=== PATIENT | male | born 1970 | race Caucasian/White ===

== ENCOUNTER 2017-03-15 18:19 | Emergency (ER) | payer OTHER ==
[~2017-03-15] VITALS: Ht 182.9 cm; Wt 83.5 kg
[2017-03-15 18:21] VITALS: BP 167/87; PULSE 92; RESP 18; TEMP 98.5; O2SAT 98
--- NOTE | 2017-03-15 18:56 | PD ---
Physical Exam Date Seen by Provider: Mar 15, 2017 Time Seen by Provider: 18:53 Narrative 47 y/o male here with 5 weeks of generalized weakness and 25 pound weight loss. Has palpitations and Nausea. No Vomitting or Diarrhea. Was prescibed Abx 2 weeks ago by PCP but did not take it as it interferred with his Antabuse. States No ETOH. was prescibed ABX for report of Increased WBC. Protocols ordered. Vital signs reviewed. Patient stable. Awaiting Bed placement. Data Data Last Documented VS Vital Signs Date Time Temp Pulse Resp B/P Pulse Ox O2 Delivery O2 Flow Rate FiO2 03/15/17 18:21 98.5 92 18 167/87 98 MDM Medical Record Reviewed: Yes Supervised Visit with ANGELA: Yes Condition: Stable Patricio Melendez Mar 15, 2017 18:56
[2017-03-15 19:41] LABS: BLOOD, URINE NEG (NEG); COMMENT (UR) CULT NOT INDICATED; CULTURE IF INDICATED CULT NOT INDICATED; GLUCOSE,URINE NEG (NEG); KETONE, URINE NEG (NEG); MUCUS URINE FEW /lpf (OCC); NITRITE,URINE NEG (NEG); SQUAMOUS EPITHELIAL CELL URINE <1 /hpf (0-5); URINE COLOR YELLOW (YELLW/STRAW)
[2017-03-15 19:43] LABS: AUTOMATED NEUTROPHIL # 7.5 TH/MM3 (1.8-7.7); BASOPHIL % 0.5 % (0.0-2.0); EOSINOPHIL # 0.1 TH/MM3 (0-0.4); HEMATOCRIT 41.5 % (39.0-51.0); HEMO FLAGS DIFF FINAL; LYMPH % 21.3 % (9.0-44.0); LYMPHOCYTE # 2.2 TH/MM3 (1.0-4.8); MEAN CELL VOLUME 81.7 FL (80.0-100.0); MEAN CORPUSCULAR HEMOGLOBIN 27.9 PG (27.0-34.0); MEAN CORPUSCULAR HGB CONC 34.1 % (32.0-36.0); NEUT % 71.2 % (16.0-70.0); PLATELET COUNT 218 TH/MM3 (150-450); RED BLOOD COUNT 5.08 MIL/MM3 (4.50-5.90); RED CELL DISTRIBUTION WIDTH 14.4 % (11.6-17.2); WHITE BLOOD COUNT 10.5 TH/MM3 (4.0-11.0)
[2017-03-15 19:55] LABS: ANION GAP 8 MEQ/L (5-15); AST (GOT) 11 U/L (15-37); BICARBONATE 26.3 MEQ/L (21.0-32.0); BLOOD UREA NITROGEN 17 MG/DL (7-18); CHLORIDE 103 MEQ/L (98-107); GLOMERULAR FILTRATION RATE 82 ML/MIN (>89); POTASSIUM 4.2 MEQ/L (3.5-5.1); SODIUM (NA) 137 MEQ/L (136-145)
[2017-03-15 19:58] LABS: ALKALINE PHOSPHATASE 67 U/L (45-117); ALT (GPT) 20 U/L (12-78); TOTAL BILIRUBIN ADULT 0.4 MG/DL (0.2-1.0)
[2017-03-15 21:51] VITALS: BP 142/88; PULSE 68; RESP 16; O2SAT 96
[2017-03-15] MEDS ORDERED: IOHEXOL 350 MG/ML 10 ML VIAL (for RAD DIAG) IV ONE (22:01)
--- NOTE | 2017-03-15 22:20 | RADRPT ---
EXAM DATE/TIME: 03/15/2017 21:57 [place] COMPARISON: No previous studies available for comparison. INDICATIONS : Patient complains of abdominal pain with fatigue and weight loss. IV CONTRAST: 100 cc Omnipaque 350 (iohexol) IV ORAL CONTRAST: No oral contrast ingested. RADIATION DOSE: 7.80 CTDIvol (mGy) MEDICAL HISTORY : None SURGICAL HISTORY : None. ENCOUNTER: Initial ACUITY: 1 month PAIN SCALE: 5/10 LOCATION: abdomen TECHNIQUE: Volumetric scanning of the abdomen and pelvis was performed. Using automated exposure control and ad justment of the mA and/or kV according to patient size, radiation dose was kept as low as reasonably achievable to obtain optimal diagnostic quality images. DICOM format image data is available electro nically for review and comparison. FINDINGS: LOWER LUNGS: The visualized lower lungs are clear. LIVER: 3.7 cm presumed hemangioma right lobe liver SPLEEN: Normal size without lesion. PANCREAS: Within normal limits. KIDNEYS: Normal in size and shape. There is no mass, stone or hydronephrosis. ADRENAL GLANDS: Within normal limits. VASCULAR: There is no aortic aneurysm. BOWEL/MESENTERY: The stomach, small bowel, and colon demonstrate no acute abnormality. There is no free intraperitone al air or fluid. ABDOMINAL WALL: Within normal limits. RETROPERITONEUM: There is no lymphadenopathy. BLADDER: No wall thickening or mass. REPRODUCTIVE: Within normal limits. INGUINAL: There is no lymphadenopathy or hernia. MUSCULOSKELETAL: Within normal limits for patient age. CONCLUSION: 1. No acute findings. 3.7 cm lesion with peripheral right lobe liver most characteristic of a liver h emangioma. Daryl Toro MD on March 15, 2017 at 22:15 Board Certified Radiologist. This report was verified electronically.
--- NOTE | 2017-03-15 22:21 | PD ---
HPI Chief Complaint: Abdominal Pain Time Seen by Provider: 21:30 Travel History International Travel<30 days: No Contact w/Intl Traveler<30days: No Traveled to known affect area: No History of Present Illness HPI The patient is a 47 year old male who presents to the [facility] emergency department with a history of 5 weeks of reportedly experiencing generalized weakness, decreased appetite, and weight loss of approximately 20 pounds. The patient reports that he's been doing his primary care physician on 3 occasions regarding this. He reports that he underwent laboratory studies with . He reports that he was told that his white count was elevated, therefore he was given a prescription for an antibiotic. He did not take the prescription for antibiotic as of interactive with his Antabuse that he been on for the last couple of years. He reports that he has not drank any alcohol for the last 3 years. He reports that 2 weeks ago when the symptoms continued to progress he did stop the Antabuse as well. He reports that he has intermittent abdominal pains that come and go and move throughout the abdomen in various locations. He reports having nausea without any vomiting or diarrhea. He reports that his last bowel movement was today. He denies ever undergoing endoscopy or colonoscopy in the past. He reports that 3 years ago he did have an episode of jaundice that went away when he stopped drinking alcohol. He denies being evaluated for this in the past. On review of systems, the patient denies any recent fevers, cough, congestion, neck pain, chest pain, shortness of breath, urinary symptoms, or neurologic symptoms. The patient intermittently reports having palpitations associated with this. [facility] Past Medical History Narrative Medical The patient's past medical history is significant for anxiety disorder, hypertension, diabetes mellitus, insomnia, prior history of alcohol abuse Diabetes: Yes Patient Takes Glucophage: Yes Hypertension: Yes Tetanus Vaccination: Unknown Influenza Vaccination: No Past Surgical History Narrative Surgical The patient's past surgical history is significant for brain surgery as a child related to a traumatic brain injury. Surgical History: No Previous Surgery Social History Alcohol Use: No Tobacco Use: Yes (CHEWS) Substance Use: No Allergies-Medications (Allergen,Severity, Reaction): Coded Allergies: No Known Allergies (Unverified , 03/15/17) Reported Meds & Prescriptions Reported Meds & Active Scripts Active Famotidine 40 Mg Tab 40 Mg PO BID Review of Systems Except as stated in HPI: all other systems reviewed are Neg General / Constitutional: No: Fever Eyes: No: Visual changes HENT: No: Headaches Cardiovascular: No: Chest Pain or Discomfort Respiratory: No: Shortness of Breath Gastrointestinal: Positive: Nausea, Abdominal Pain, No: Vomiting, Diarrhea, Hematemesis, Hematochezia, Changes in Bowel Habits, Indigestion, Loss of Appetite Genitourinary: No: Dysuria Musculoskeletal: No: Pain Skin: No Rash Neurologic: No: Weakness Psychiatric: No: Depression Endocrine: No: Polydipsia Hematologic/Lymphatic: No: Easy Bruising Physical Exam Narrative General: The patient is a well-developed well-nourished male in no acute distress. Head and Neck exam: Head is normocephalic atraumatic. Eyes: EOMI, pupils are equal round and reactive to light. Nose: Midline septum with pink mucous membranes Mouth: Dentition unremarkable. Moist mucus membranes. Posterior oropharynx is not erythematous. No tonsillar hypertrophy. Uvula midline. Airway patent. Neck: No palpable lymphadenopathy. No nuchal rigidity. No thyromegaly. Cardiovascular: Regular rate and rhythm without murmurs, gallops, or rubs. No pulse deficit to the extremities and some obtain his auscultation and palpation of his radial artery. Lungs: Clear to auscultation bilaterally. No wheezes, rhonchi, or rales. Abdomen: Soft, without tenderness to palpation in all 4 quadrants of the abdomen. No guarding, rebound, or rigidity. Normal bowel sounds are audible. No tenderness on palpation of McBurney's point. Negative [place] sign. Extremities: No clubbing, cyanosis, or edema. 2+ pulses in all 4 extremities. No calf tenderness on palpation. Back: No costovertebral angle tenderness to palpation. Neurologic Exam: Grossly nonfocal. Skin Exam: No rash noted. Intact skin that is warm and dry. Data Data Last Documented VS Vital Signs Date Time Temp Pulse Resp B/P Pulse Ox O2 Delivery O2 Flow Rate FiO2 03/15/17 21:51 68 16 142/88 96 Room Air 03/15/17 18:21 98.5 Orders Complete Blood Count With Diff (03/15/17 18:52) Comprehensive Metabolic Panel (03/15/17 18:52) Urinalysis - C+S If Indicated (03/15/17 18:52) Iv Access Insert/Monitor (03/15/17 18:52) Oxygen Administration (03/15/17 18:52) Oximetry (03/15/17 18:52) Lipase (03/15/17 18:52) Ct Abd/Pel W Iv Contrast(Rout) (03/15/17 21:32) Iohexol 350 Inj (Omnipaque 350 Inj) (03/15/17 22:01) Electrocardiogram (03/15/17 22:47) Sodium Chlor 0.9% 1000 Ml Inj (Ns 1000 M (03/15/17 23:00) Ondansetron Inj (Zofran Inj) (03/15/17 23:00) Thyroid Stimulating Hormone (03/15/17 19:10) Famotidine Inj (Pepcid Inj) (03/15/17 23:30) Labs Laboratory Tests Test 03/15/17 19:10 White Blood Count 10.5 TH/MM3 Red Blood Count 5.08 MIL/MM3 Hemoglobin 14.2 GM/DL Hematocrit 41.5 % Mean Corpuscular Volume 81.7 FL Mean Corpuscular Hemoglobin 27.9 PG Mean Corpuscular Hemoglobin 34.1 % Concent Red Cell Distribution Width 14.4 % Platelet Count 218 TH/MM3 Mean Platelet Volume 8.5 FL Neutrophils (%) (Auto) 71.2 % Lymphocytes (%) (Auto) 21.3 % Monocytes (%) (Auto) 6.0 % Eosinophils (%) (Auto) 1.0 % Basophils (%) (Auto) 0.5 % Neutrophils # (Auto) 7.5 TH/MM3 Lymphocytes # (Auto) 2.2 TH/MM3 Monocytes # (Auto) 0.6 TH/MM3 Eosinophils # (Auto) 0.1 TH/MM3 Basophils # (Auto) 0.0 TH/MM3 CBC Comment DIFF FINAL Differential Comment Urine Color YELLOW Urine Turbidity CLEAR Urine pH 6.0 Urine Specific Z[place]ma 1.021 Urine Protein NEG mg/dL Urine Glucose (UA) NEG mg/dL Urine Ketones NEG mg/dL Urine Occult Blood NEG Urine Nitrite NEG Urine Bilirubin NEG Urine Urobilinogen LESS THAN 2.0 MG/DL Urine Leukocyte Esterase NEG Urine RBC LESS THAN 1 /hpf Urine WBC LESS THAN 1 /hpf Urine Squamous Epithelial <1 /hpf Cells Urine Mucus FEW /lpf Microscopic Urinalysis Comment CULT NOT INDICATED Sodium Level 137 MEQ/L Potassium Level 4.2 MEQ/L Chloride Level 103 MEQ/L Carbon Dioxide Level 26.3 MEQ/L Anion Gap 8 MEQ/L Blood Urea Nitrogen 17 MG/DL Creatinine 0.98 MG/DL Estimat Glomerular Filtration 82 ML/MIN Rate Random Glucose 169 MG/DL Calcium Level 9.3 MG/DL Total Bilirubin 0.4 MG/DL Aspartate Amino Transf 11 U/L (AST/SGOT) Alanine Aminotransferase 20 U/L (ALT/SGPT) Alkaline Phosphatase 67 U/L Total Protein 7.3 GM/DL Albumin 3.8 GM/DL Lipase 515 U/L Thyroid Stimulating Hormone 0.823 uIU/ML 3rd Gen [facility] Medical Decision Making Medical Screen Exam Complete: Yes Emergency Medical Condition: Yes Medical Record Reviewed: Yes Interpretation(s) Last Impressions Abdomen/Pelvis CT 03/15/172131 Signed Impressions: Service Date/Time: Wednesday, March 15, 2017 21:57 - CONCLUSION: 1. No acute findings. 3.7 cm lesion with peripheral right lobe liver most characteristic of a liver hemangioma. Daryl Toro MD Differential Diagnosis Hyperthyroid disorder, versus electrolyte derangements, versus dehydration, versus pancreatitis, versus occult cancer, versus depression, versus anxiety Narrative Course During the course of the patients emergency department visit, the patients history, examination, and differential diagnosis were reviewed with the patient. The patient had IV access obtained and blood work sent for analysis. The patient was placed on a bus driver/monitor with oximetry and blood pressure monitoring. An ECG was ordered. The patient was initially provided normal saline a 1 L IV fluid bolus, Zofran 4 mg IV. The patient was given famotidine 20 mg IV. The patients laboratory studies were reviewed and remarkable for a white count of 10.5, hemoglobin 14.2, platelets 218 with neutrophils 71.2. CMP is remarkable for glucose of 169, AST 11, lipase 515, urinalysis is unremarkable. Radiology studies were reviewed and remarkable for a CT scan of the abdomen and pelvis shows no acute findings. 3.7 cm lesion within the peripheral right lower lobe of the liver most characteristic of the liver hemangioma. The patient was instructed regarding the importance of close follow-up with a ski patrol officer and his primary care physician. The patient was given a prescription for famotidine. The patient is resting comfortably and feels better, is alert and in no distress. The patients results and examination findings were discussed with the patient. The repeat examination is unremarkable and benign. The history, exam, diagnostic testing, and current condition do not suggest any significant pathology to warrant further testing, continued ED treatment, admission, or surgical evaluation at this point. The vital signs have been stable. The patient does not have uncontrollable pain, intractable vomiting, or other significant symptoms. The patient's condition is stable and appropriate for discharge. The patient will pursue further outpatient evaluation with a primary care physician or other designated or consulting physician as indicated in the discharge instructions. The patient expressed understanding and was agreeable with this plan. Physician Communication Physician Communication The patient's case was discussed with Dr. Maldonado who will see the patient in close follow-up in the next 1-2 days in his office in the [facility]. He was agreeable with the plan for the patient to follow-up with the GI doctor. He agreed with the plan for the patient to be sent home with a prescription for famotidine. Diagnosis Primary Impression: Generalized weakness Additional Impression: Weight loss Referrals: Eduardo Machado MD call for appointment Patel Maldonado DO 2 days Patient Instructions: General Instructions, Weakness (ED) Med/Other Pt SpecificInfo: Prescription(s) given Scripts Famotidine 40 Mg Tab40 Mg PO BID #14 TAB Ref 0 Prov:Tomasa Dai MD 03/15/17 Disposition: 01 DISCHARGE HOME Condition: Stable Tomasa Dai MD Mar 15, 2017 22:21
[2017-03-15] MEDS ORDERED: SODIUM CHLOR 0.9% 1000 ML INJ 1,000 ML IV ONE (23:00)
[2017-03-15] MEDS ORDERED: ONDANSETRON HCL 4 MG/2 ML VIAL IV ONE (23:00)
[2017-03-15] MEDS ORDERED: FAMO40TA PO (23:24)
[2017-03-15] MEDS ORDERED: FAMOTIDINE INJ 20 MG in SODIUM CHLORIDE 0.9% INJ 98 ML IV SCH (23:30)
== END 2017-03-16 00:36 | disposition home or self-care (01) ==
LOC: NEPE 18:19
DX: R53.1 Weakness (principal); R63.4 Abnormal weight loss; E11.9 Type 2 diabetes mellitus without complications; Z79.84 Long term (current) use of oral hypoglycemic drugs; F17.220 Nicotine dependence, chewing tobacco, uncomplicated
CPT/HCPCS: 74177; 80053; 81001; 83690; 84443; 85025; 96374; 96375; 99285; J2405; J7030; Q9967

== ENCOUNTER 2018-05-22 17:49 | Inpatient (IN) ==
[2018-05-22] MEDS ORDERED: Tetanus/Diphtheria Toxoid Adult Vaccine Inj 0.5 ML Vial IM ONE (19:07)
[2018-05-22] MEDS ORDERED: Ketorolac Inj 30 MG/ML (IVP) Vial IV.PUSH ONE (19:07)
[2018-05-22] MEDS ORDERED: Acetaminophen 325 MG Tablet PO ONE (19:07)
--- NOTE | 2018-05-22 19:07 | ED ---
HPI General Chief complaint: Skin/Abscess/Foreign Body Stated complaint: left hand swelling cut on atiya sink Time Seen by Provider: 05/22/18 18:49 Source: patient Mode of arrival: ambulatory Limitations: no limitations History of Present Illness HPI narrative: Patient is a 48-year-old male who presents to the emergency room with complaints of infection to his left hand. Patient reports that at baseline , he is right-hand dominant. Patient reports that on or Wednesday of last week, he was fixing a sink at work. Patient reports that piece of the metal part of the sink broke off and cut his left hand. Patient reports that since then, he has had increased swelling and redness to his left hand which is radiating up his arm. Patient is unsure if he had any fevers, reports that he is unsure if his tetanus is up-to-date. Patient also endorses that he has been experimenting with IV drugs. Reports that he keeps missing his veins in his arms and that he noticed red spots where he attempted to shoot up in both upper extremities. Related Data Home Medications Medication Instructions Recorded Confirmed Lipitor 05/22/18 metformin 500 mg PO BID 05/22/18 05/22/18 Allergies Allergy/AdvReac Type Severity Reaction Status Date / Time No Known Allergies Allergy Verified 05/22/18 18:02 Review of Systems ROS: all other systems reviewed are negative [facility] Medical History Medical History Diabetes mellitus (Acute) High cholesterol (Acute) Hypertension (Acute) Surgical History Surgical History History of surgery of head (Acute) Social History Social History Substance History: Active Abuse Second Hand Smoke Exposure: No Smoking Status: Never smoker How Often Do You Have a Drink Containing Alcohol: Never Recent Travel in [facility] within the Last 8 Weeks: No Recent Out of Country Travel within the Last 8 Weeks: No Substance Abuse Detail Crack/Cocaine: Route Used Substance Abuse: Intravenously Other: Substance Use Type Other:: Dilaudid Route Used Substance Abuse: Intravenously Immunization History Tetanus Immunization: Unsure Exam Narrative Exam Narrative: GENERAL: Moderate distress SKIN: Focused skin assessment warm/dry. HEAD: Atraumatic. Normocephalic. EYES: Pupils equal and round. No scleral icterus. No injection or drainage. ENT: No nasal bleeding or discharge. Mucous membranes pink and moist. NECK: Trachea midline. No JVD. CARDIOVASCULAR: Regular rate and rhythm. No murmur appreciated. RESPIRATORY: No accessory muscle use. Clear to auscultation. Breath sounds equal bilaterally. GASTROINTESTINAL: Abdomen soft, non-tender, nondistended. Hepatic and splenic margins not palpable. MUSCULOSKELETAL: No obvious deformities. No clubbing. No cyanosis. RUE: patient with track case to his RUE LUE: patient with track case to his LUE, he has swelling to the thenar aspect of his right hand, he does have stranding from the thenar aspect of his hands up to his forearm along with track case, patient with good range of motion to all digits of fingers, no evidence of flexor tenosynovitis, there is no evidence of compartment syndrome to his left hand. Patient has good pulses with no neurovascular compromise. NEUROLOGICAL: Awake and alert. No obvious cranial nerve deficits. Motor grossly within normal limits. Normal speech. PSYCHIATRIC: Appropriate mood and affect; insight and judgment normal. Course Initial Documented Vital Signs Temperature 100.5 F H 05/22/18 17:59 Pulse Rate 92 H 05/22/18 17:59 Respiratory Rate 16 05/22/18 17:59 Blood Pressure 159/69 H 05/22/18 17:59 Pulse Oximetry 98 05/22/18 17:59 Last Documented Vital Signs Temperature 100.5 F H 05/22/18 17:59 Pulse Rate 90 05/22/18 20:07 Respiratory Rate 20 05/22/18 20:07 Blood Pressure 135/65 05/22/18 20:07 Pulse Oximetry 100 05/22/18 20:07 Medical Decision Making MDM Narrative Medical decision making narrative: During the course of the patients emergency department visit, the patients history, examination, and differential diagnosis were reviewed with the patient. The patient was placed on a systems librarian with oximetry and frequent blood pressure monitoring. The patient had an IV access obtained and blood work sent for analysis. The patient was initially provided IVF, IV vanco and tetanus was updated Patient has likely an infection vs abscess to the thenar aspect of his left hand - call made to hand surgery to review case as he may need a washout in the OR Case reviewed with Dr. Lyon - will bring the patient tonight for washout. Patient has been NPO for the past [address] Maldonado - will admit to his service Dr. Maldonado is on vacation - request admissions to [facility] case reviewed with Dr. Shukla who accepts pt to service Medical Screen Exam Complete: Yes Emergency Medical Condition: Yes Differential Diagnosis Differential Diagnosis: Hand abscess versus cellulitis, IVDA Lab Data Result diagrams: 05/22/18 19:15 05/22/18 19:15 Lab Results 05/22/18 05/22/18 05/22/18 Range/Units 19:15 19:15 19:15 CBC w Diff Auto diff final WBC 10.7 (4.0-11.0) th/mm3 RBC 4.19 L (4.50-5.90) mil/mm3 Hgb 11.1 L (13.0-17.0) gm/dL Hct 32.6 L (39.0-51.0) % MCV 77.8 L (80.0-100.0) fL MCH 26.4 L (27.0-34.0) pg MCHC 33.9 (32.0-36.0) % RDW 14.0 (11.6-17.2) % Plt Count 239 (150-450) th/mm3 MPV 9.4 (7.0-11.0) fL Neut % (Auto) 78.2 H (16.0-70.0) % Lymph % (Auto) 11.7 (9.0-44.0) % [place] % (Auto) 8.9 H (0.0-8.0) % Eos % (Auto) 1.0 (0.0-4.0) % Baso % (Auto) 0.2 (0.0-2.0) % Neut # (Auto) 8.3 H (1.8-7.7) th/mm3 Lymph # (Auto) 1.3 (1.0-4.8) th/mm3 [place] # (Auto) 1.0 H (0.0-0.9) th/mm3 Eos # (Auto) 0.1 (0.0-0.4) th/mm3 Baso # (Auto) 0.0 (0.0-0.2) th/mm3 WBC Differential . Differential Comment . PT 11.1 (9.8-11.6) sec INR 1.1 Ratio APTT 27.0 (24.3-30.1) sec Sodium 133 L (136-145) meq/L Potassium 3.6 (3.5-5.1) meq/L Chloride 103 (98-107) meq/L Carbon Dioxide 18.5 L (21.0-32.0) meq/L Anion Gap 12 (5-15) meq/L BUN 55 H (7-18) mg/dL Creatinine 2.20 H (0.60-1.30) mg/dL Estimated GFR 32 L (>89) mL/min Random Glucose 225 H (74-106) mg/dL Lactic Acid (0.4-2.0) mmol/L Calcium 8.2 L (8.5-10.1) mg/dL Total Bilirubin 0.8 (0.2-1.0) mg/dL AST 232 H (15-37) U/L ALT 219 H (12-78) U/L Alkaline Phosphatase 97 (45-117) U/L Total Protein 7.0 (6.4-8.2) g/dL Albumin 3.2 L (3.4-5.0) g/dL 05/22/18 Range/Units 19:15 CBC w Diff WBC (4.0-11.0) th/mm3 RBC (4.50-5.90) mil/mm3 Hgb (13.0-17.0) gm/dL Hct (39.0-51.0) % MCV (80.0-100.0) fL MCH (27.0-34.0) pg MCHC (32.0-36.0) % RDW (11.6-17.2) % Plt Count (150-450) th/mm3 MPV (7.0-11.0) fL Neut % (Auto) (16.0-70.0) % Lymph % (Auto) (9.0-44.0) % [place] % (Auto) (0.0-8.0) % Eos % (Auto) (0.0-4.0) % Baso % (Auto) (0.0-2.0) % Neut # (Auto) (1.8-7.7) th/mm3 Lymph # (Auto) (1.0-4.8) th/mm3 [place] # (Auto) (0.0-0.9) th/mm3 Eos # (Auto) (0.0-0.4) th/mm3 Baso # (Auto) (0.0-0.2) th/mm3 WBC Differential Differential Comment PT (9.8-11.6) sec INR Ratio APTT (24.3-30.1) sec Sodium (136-145) meq/L Potassium (3.5-5.1) meq/L Chloride (98-107) meq/L Carbon Dioxide (21.0-32.0) meq/L Anion Gap (5-15) meq/L BUN (7-18) mg/dL Creatinine (0.60-1.30) mg/dL Estimated GFR (>89) mL/min Random Glucose (74-106) mg/dL Lactic Acid 0.9 (0.4-2.0) mmol/L Calcium (8.5-10.1) mg/dL Total Bilirubin (0.2-1.0) mg/dL AST (15-37) U/L ALT (12-78) U/L Alkaline Phosphatase (45-117) U/L Total Protein (6.4-8.2) g/dL Albumin (3.4-5.0) g/dL Imaging Data Radiologist's impression: Hand X-Ray 05/22/18 19:07 CONCLUSION: Generalized soft tissue swelling of the thenar eminence without radiopaque foreign body. Discharge Plan Discharge Disposition Patient Disposition: 30 Still Patient Discharge Condition Condition: Fair Discharge Details Diagnosis: Abscess of hand, left, Acute renal insufficiency Physicians Team ED Provider: Leni Lewis Primary Care Provider: Patel Maldonado Other Providers: Donald Lyon Rxs /Orders / Referrals /Forms Prescriptions: No Action metformin 500 mg Tablet 500 mg PO BID RF: 0 Lipitor RF: 0 Status ED Status: Admitted Patient
[2018-05-22] MEDS ORDERED: Sod Chloride 0.9% Inj 1,000 ML IV.SIG SCH (19:15)
[2018-05-22 19:34] LABS: Baso % (Auto) 0.2 % (0.0-2.0); Eos # (Auto) 0.1 th/mm3 (0.0-0.4); Hematocrit 32.6 % (39.0-51.0); Hemoglobin 11.1 gm/dL (13.0-17.0); Lymph # (Auto) 1.3 th/mm3 (1.0-4.8); Lymph % (Auto) 11.7 % (9.0-44.0); Mean Corpuscular HGB Conc 33.9 % (32.0-36.0); Mean Corpuscular Hemoglobin 26.4 pg (27.0-34.0); Mean Corpuscular Volume 77.8 fL (80.0-100.0); Mean Platelet Volume 9.4 fL (7.0-11.0); Mono % (Auto) 8.9 % (0.0-8.0); Neut # (Auto) 8.3 th/mm3 (1.8-7.7); Neut % (Auto) 78.2 % (16.0-70.0); Platelet Count 239 th/mm3 (150-450); Red Blood Count 4.19 mil/mm3 (4.50-5.90); White Blood Count 10.7 th/mm3 (4.0-11.0)
[2018-05-22 19:41] LABS: Chloride 103 meq/L (98-107); Potassium 3.6 meq/L (3.5-5.1); Sodium 133 meq/L (136-145)
[2018-05-22 19:45] LABS: Albumin 3.2 g/dL (3.4-5.0); Anion Gap 12 meq/L (5-15); Blood Urea Nitrogen 55 mg/dL (7-18); Calcium 8.2 mg/dL (8.5-10.1); Carbon Dioxide 18.5 meq/L (21.0-32.0); Glucose,Random 225 mg/dL (74-106)
[2018-05-22] MEDS ORDERED: Morphine Inj 4 MG/ML Vial IV.PUSH ONE ×3 (19:45→23:07)
[2018-05-22 19:47] LABS: INR 1.1 Ratio; Prothrombin Time 11.1 sec (9.8-11.6)
[2018-05-22 19:48] LABS: Alanine Aminotransferase 219 U/L (12-78); Aspartate Aminotransferase 232 U/L (15-37); Glomerular Filtration Rate 32 mL/min (>89)
[2018-05-22 19:51] LABS: Alkaline Phosphatase 97 U/L (45-117)
[2018-05-22] MEDS ORDERED: Piperacil/Tazo 3.375 GM Premix 50 ML IV.SIG ONE (19:51)
--- NOTE | 2018-05-22 19:51 | XR ---
EXAM DATE: 05/22/2018 7:07 PM EDT AGE/SEX: 48 years / Male INDICATIONS: Laceration to palmar aspect of 1st metacarpal of left hand by atiya metal. CLINICAL DATA: This is the patient's initial encounter. Patient reports that signs and symptoms have been present for 4 - 6 days and indicates a pain score of 10/10. MEDICAL/SURGICAL HISTORY: None. None. COMPARISON: No prior exams available for comparison. FINDINGS: Bony structures are intact and in normal alignment. Osseous density is normal. Soft tissue swelling t henar eminence. No radiopaque foreign bodies seen. CONCLUSION: Generalized soft tissue swelling of the thenar eminence without radiopaque foreign body. Electronically signed by: Jarod Hillman MD 05/22/2018 7:49 PM EDT
[2018-05-22] MEDS ORDERED: Vancomycin Inj 1,000 MG in Sodium Chlor 0.9% Inj 250 ML IV.SIG SCH (20:00)
[2018-05-22] MEDS ORDERED: Vancomycin Inj 1,000 MG in Sodium Chlor 0.9% Inj 250 ML IV.SIG ONE (20:00)
[2018-05-22] MEDS ORDERED: Vancomycin Inj 1 GM/200 ML PIGGYBACK IV.SIG SCH (20:00)
[2018-05-22] MEDS ORDERED: Vancomycin Consult Pharmacy OTHER PRN (20:11)
[2018-05-22] MEDS ORDERED: Bisacodyl 10 MG Supp RECTAL PRN (20:13)
[2018-05-22] MEDS ORDERED: Acetaminophen 325 MG Tablet PO PRN (20:13)
[2018-05-22] MEDS ORDERED: Lidocaine 2% Inj 50 ML Vial ONE (20:35)
[2018-05-22] MEDS ORDERED: Bupivacaine PF 0.5% Inj 30 ML Vial ONE (20:35)
[2018-05-22] MEDS ORDERED: Neomycin/Polymyxin G.U. Irrigant 1 ML Ampul ONE (20:35)
[2018-05-22] MEDS ORDERED: fentaNYL Citrate Inj 100 MCG/2 ML Ampul ONE (21:29)
--- NOTE | 2018-05-22 21:38 | MB ---
cc: Donald Lyon MD DATE: 05/22/2018 REASON FOR CONSULTATION: Left hand infection. HISTORY OF PRESENT ILLNESS: The patient is a 48-year-old right-hand dominant male with history of diabetes, presented to the ED with complaints of pain, swelling and redness involving the left hand/thumb for the past 2-3 days. The patient states he was working on a sink which broke off and cut his left hand. The patient also states he has been trying with IV drugs and has been unsuccessful, and he has been injecting all over both upper extremities. He has noticed worsening symptoms over the past 12 hours. He also complains of painful range of motion of the thumb. Denies any numbness. Denies any history of MRSA in the past. Denies any chills or rigors. PAST MEDICAL HISTORY: Significant for diabetes, hypertension, and high cholesterol. PHYSICAL EXAMINATION: The patient is alert and oriented x 3. Examination of his left hand reveals diffuse swelling over the thenar eminence and over the first webspace. There is also evidence of erythema over the thenar region. There is also evidence of wound along the lateral aspect of the MP joint region of the thumb. Clear serous discharge noted from the region. Questionable fluctuance noted over the lateral aspect of the MP joint of the thumb. He has diffuse tenderness over the thenar eminence. No obvious fluctuation of the thenar eminence noted. He has intact capillary refill. He has intact flexion and extension of the thumb IP joint. Mild tenderness noted along the flexor tendon sheath of the thumb. He has intact sensation distally. He has intact distal capillary refill. The patient also has streaking erythema which extends along the dorsal aspect of the forearm. The patient also has multiple needlestick case over the forearm. He also has a few spots on the right forearm and hand, which appear to be swollen with no evidence of fluctuation of drainage. Vital signs are significant for a temperature of 100.5. LABORATORY DATA: White count of 10.7 with neutrophil shift of 78%. X-rays of the left hand shows evidence of soft tissue swelling around the thenar eminence with no evidence of foreign body. ASSESSMENT: A 48-year-old male with abscess infection/infection right thumb thenar eminence. PLAN: Plan will be to take the patient emergently for incision and drainage of right thumb/hand abscess. Continue with IV antibiotics and keep the patient n.p.o. Donald Loyn MD SE/molina , 09:08 PM , 09:14 PM
[2018-05-22] MEDS ORDERED: Lidocaine PF 1% Inj 5 ML Syringe INFILTRATN ONE (21:54)
[2018-05-22] MEDS ORDERED: Succinylcholine Inj 100 MG/5 ML Syringe IV.PUSH ONE (21:54)
[2018-05-22] MEDS ORDERED: Sodium Chlor 0.9% Inj 500 ML IV.SIG SCH (22:00)
[2018-05-22] MEDS ORDERED: Chlorhexidine Gluconate 2% 1 Pack (2 Cloths) TOPICAL ONE (22:00)
[2018-05-22] MEDS ORDERED: Metoprolol Tartrate 25 MG Tablet PO ONE (22:00)
--- NOTE | 2018-05-22 22:41 | P.OP ---
- Preoperative Diagnosis (1) Abscess of hand, left - Postoperative Diagnosis (1) Abscess of hand, left Comment: abscess including thenar space left hand Date of procedure: 05/22/18 Procedure: incision and drainage left hand/thenar abscess thenar compartment release left hand Surgeon: Donald Lyon MD Estimated blood loss (mL): 5 Tourniquet time (min): 35 Pathology: other (swab for c/s) Operation and Findings: abscess subcutaneous location MP joint region, thenar region and extensor region of the thumb thenar space abscess left hand
[2018-05-22] MEDS ORDERED: HYDROmorphone PF Inj 2 MG/ML Vial ONE (23:15)
--- NOTE | 2018-05-22 23:29 | MP ---
cc: Donald Lyon MD DATE OF OPERATION: 05/22/2018 PREOPERATIVE DIAGNOSIS: Left hand abscess. POSTOPERATIVE DIAGNOSES: Left hand abscess and thenar abscess, left side. PROCEDURE PERFORMED: Incision and drainage of left hand abscess and thenar compartment release, left hand. SURGEON: Donald Lyon MD ANESTHESIA: General. ESTIMATED BLOOD LOSS: 5 mL. TOURNIQUET TIME: 35 minutes at 250 mmHg. SPECIMENS: Specimen was sent for culture and sensitivity. DISPOSITION: To the PACU, stable. INDICATIONS: The patient is a 48-year-old right-hand dominant male with a history of diabetes, who presented with complaints of pain and swelling involving the left hand for the past 2 days, worse for the past 12 hours. He was working on a atiya sink and apparently, he injured the left hand. The patient also gives history of attempted drainage of the infection by himself, which was unsuccessful. He also admits to injecting drugs into both upper extremities recently. On examination, he had swelling over the thenar eminence with open wounds along the radial aspect of the MP joint region of the thumb. There was also evidence of surrounding swelling and erythema around the thenar aspect along with the first dorsal webspace. Range of motion of the thumb was limited and painful. X-ray showed soft tissue swelling. He had a neutrophil shift of 78%. The patient was consented for incision and drainage, left hand abscess. The patient was explained the risks and benefits of the procedure. PROCEDURE IN DETAIL: The patient was brought to the operating room under general anesthesia. The left upper extremity was sterilely prepped and draped. Incision site was marked in a zigzag fashion over the radial aspect of the MP joint region of the thumb. Incision was then made over the proposed incision site. Soft tissue dissection was carried out. Extensive inflammatory tissue was noted in the subcutaneous location. On further dissection, there was evidence for involvement of the thenar muscle and so the decision was made to extend the incision proximally and open up the thenar space. The thenar space was opened and there was evidence of purulent material within the thenar muscle region. Another incision was then made distal to the thenar crease of the thenar space along the ulnar aspect and this was connected to the incision on the radial aspect. Pockets of pus were noted. Pockets of pus were broken by blunt dissection. An incision was made over the dorsal aspect of the thumb. This was connected to the radial aspect of the MP joint of the thumb. There was evidence of purulence in the region. Thorough wash was given. Excisional debridement of necrotic tissue, which was found along the radial aspect of the thumb, which included the aponeurosis of the thenar muscles, this was debrided. Initially, wound wash was carried out with normal saline mixed with hydrogen peroxide. This was then followed by normal saline mixed with irrigant. About a liter of solution was used. Specimen was obtained for culture and sensitivity prior to wash. Packing of the wounds was carried out. Tourniquet was deflated at 35 minutes. He had good distal circulation after release of tourniquet. The skin over the thenar eminence and along the radial aspect of the MP joint of the thumb appeared to be mottled. The skin was then loosely approximated over the radial aspect of the MP joint using multiple 5-0 nylon interrupted stitches. Bulky dressing was applied, which was held in place by Sof-Rol and bias hand wrap. The patient was then recovered and sent to the recovery room in stable condition. PLAN: The plan will be to followup cultures, continue with IV antibiotics, and keep the limb elevated. Donald Lyon MD SE/neisha , 10:45 PM , 10:54 PM
[2018-05-23] MEDS ORDERED: Morphine Inj 4 MG/ML Vial IV.PUSH ONE ×2 (00:30→18:30)
[2018-05-23] MEDS: Piperacil/Tazo 4.5 GM Premix 4.5 GM/100 ML BAG IV.SIG SCH ×4 (01:02→18:26)
[2018-05-23] MEDS: Senna/Docusate Sodium 8.6/50 MG Tablet PO SCH ×3 (01:02→21:38)
[2018-05-23] MEDS: Morphine Sulfate Inj 2 MG/ML Vial IV.PUSH PRN ×5 (02:45→21:37)
[2018-05-23 05:29] LABS: Baso % (Auto) 0.3 % (0.0-2.0); Eos # (Auto) 0.1 th/mm3 (0.0-0.4); Eos % (Auto) 1.8 % (0.0-4.0); Hematocrit 31.4 % (39.0-51.0); Hemoglobin 10.3 gm/dL (13.0-17.0); Lymph # (Auto) 1.6 th/mm3 (1.0-4.8); Lymph % (Auto) 19.6 % (9.0-44.0); Mean Corpuscular HGB Conc 32.7 % (32.0-36.0); Mean Corpuscular Hemoglobin 25.9 pg (27.0-34.0); Mean Corpuscular Volume 79.1 fL (80.0-100.0); Mean Platelet Volume 8.5 fL (7.0-11.0); Mono # (Auto) 0.8 th/mm3 (0.0-0.9); Mono % (Auto) 9.9 % (0.0-8.0); Neut # (Auto) 5.6 th/mm3 (1.8-7.7); Neut % (Auto) 68.4 % (16.0-70.0); Platelet Count 220 th/mm3 (150-450); Red Blood Count 3.97 mil/mm3 (4.50-5.90); Red Cell Distribution Width 13.6 % (11.6-17.2); White Blood Count 8.1 th/mm3 (4.0-11.0)
[2018-05-23 05:41] LABS: Chloride 109 meq/L (98-107); Potassium 3.6 meq/L (3.5-5.1); Sodium 140 meq/L (136-145)
[2018-05-23 05:45] LABS: Calcium 7.7 mg/dL (8.5-10.1)
[2018-05-23 06:19] LABS: Alanine Aminotransferase 177 U/L (12-78); Albumin 2.6 g/dL (3.4-5.0); Alkaline Phosphatase 79 U/L (45-117); Anion Gap 9 meq/L (5-15); Aspartate Aminotransferase 162 U/L (15-37); Blood Urea Nitrogen 38 mg/dL (7-18); Glomerular Filtration Rate 46 mL/min (>89); Glucose,Random 205 mg/dL (74-106)
[2018-05-23] MEDS: Sod Chloride 0.9% Inj 1,000 ML IV.CONT SCH ×2 (08:14)
[2018-05-23] MEDS ORDERED: Dextrose 50% in Water 50 ML Vial IV.PUSH PRN (09:09)
--- NOTE | 2018-05-23 11:40 | P.HP ---
History of Present Illness Primary Care Physician: Patel Malodnado DO Chief Complaint: Painful and swollen left thumb History of Present Illness: 48-year-old man with a past medical history of diabetes type 2, hypertension presented yesterday to the ED for evaluation of left painful thumb and swelling since Wednesday, May 21, 2018. Apparently, on on May 19, 2018, patient was fixing a sink at work when he reported that a broken metal part cut his left thumb. On Wednesday morning, patient noted increasing swelling and redness, and using a needle puncture his skin of his thumb try to release the pressure as well as the pus which has accumulated underneath the skin. Patient also reported experimented with IV Dilaudid at home. When he presented to the ED, he denied at the time of any febrile episode. He has no chest pain or shortness of breath. Hand surgery was consulted and patient underwent incision and drainage which along with release Thenar compartment - Diagnosis (1) Abscess of hand, left (2) Transaminitis (3) IVDU (intravenous drug user) (4) Diabetes mellitus, type 2 Inpatient Certification: I certify that the inpatient services were ordered in accordance with Medicare regulations governing the order. This includes certification that hospital inpatient services are reasonable and necessary and in the case of services not specified as inpatient-only under 42 CFR 419.22(n), that they are appropriately provided as inpatient services in accordance to with the 2-midnight benchmark under 43 CFR 412.3(e) Estimated Total Length of Stay (Days): 2 Plans for Post Hospital Care: Not yet determined Review of Systems All other systems reviewed negative except as stated in HPI [facility] - History History Provided By: Patient - Medical History Medical History: Medical History (Last Reviewed 05/22/18 @ 19:19 by Leni Lewis) Diabetes mellitus High cholesterol Hypertension - Surgical History Surgical History: Surgical History (Last Reviewed 05/22/18 @ 19:19 by Leni Lewis) History of surgery of head - Family History Family History: Family History (Last Updated 05/23/18 @ 11:43 by Kashmir Le MD) Other Adopted - Tobacco History Second Hand Smoke Exposure: No Tobacco Use In Past 30 Days: No Smoking Status: Never smoker - Alcohol History How Often Do You Have a Drink Containing Alcohol: Never - Substance Use History Substance History: Active Abuse - Substance Use Type Crack/Cocaine Status: Active Route Used: Intravenously Reason for Use: Feels Good Comment: unable to obtain details Other Type: Dilaudid Status: Active Route Used: Intravenously Reason for Use: Feels Good Comment: unable to obtain details - Travel History Recent Travel in the [place] Within the Last 8 Weeks: No Recent Travel Out of the Country Within the Last 8 Weeks: No - Immunization History Tetanus Immunization: <5 Years Tetanus Immunization Year if Known: 2017 Hx Influenza Vaccine This Season: No Medications and Allergies Active Medications: Active Medications Acetaminophen (Tylenol) 650 mg PO Q4H PRN PRN Reason: Temp > 100.4 Al Hydroxide/Mg Hydroxide (Milk Of Magnesia Liq) 30 ml PO Q12H PRN PRN Reason: Mild Constipation Aripiprazole (Abilify) 5 mg PO DAILY ANGELO Bisacodyl (Dulcolax Supp) 10 mg RECTAL DAILY PRN PRN Reason: SEVERE CONSITIPATION Dextrose (D50w Vial) 50 ml IV.PUSH UNSCH PRN PRN Reason: PER HYPOGLYCEMIA PROTOCOL Glucagon (Glucagon Inj) 1 mg OTHER PRN PRN PRN Reason: for Hypoglycemia Protocol Sodium Chloride (Ns Inj) 1,000 mls @ 0 mls/hr IV.SIG BOLUS ANGELO Last Infusion: 05/22/18 20:59 Dose: 0 mls/hr Piperacillin/Tazobactam/Dextrose (Zosyn 4.5 Gm Premix) 4.5 gm in 100 mls @ 200 mls/hr IV.SIG Q6H ANGELO Last Infusion: 05/23/18 10:46 Dose: Infused Vancomycin HCl 1,250 mg/ (Sodium Chloride) 262.5 mls @ 262.5 mls/hr IV.SIG Q24H ANGELO Lactated Ringer's (Lr 1000 Ml Inj) 1,000 mls @ 30 mls/hr IV.SIG .Q24H ANGELO Stop: 05/23/18 21:59 Last Admin: 05/22/18 21:30 Dose: 30 mls/hr Insulin Aspart (Novolog Insulin Correctional Sugar Inj) 0 unit SQ ACHS ANGELO; Protocol Lactulose (Lactulose Liq) 30 ml PO DAILY PRN PRN Reason: SEVERE CONSITIPATION Lisinopril (Prinivil) 10 mg PO DAILY ANGELO Miscellaneous Information ([facility] Ordered Lab Info) 0 each OTHER ONCE ONE Stop: 05/25/18 15:46 Miscellaneous Information ([facility] Nursing Information) 1 each OTHER UNSCH PRN PRN Reason: SEE LABEL COMMENTS Stop: 05/23/18 23:00 Morphine Sulfate (Morphine Inj) 2 mg IV.PUSH Q4H PRN PRN Reason: PAIN 6-10 Last Admin: 05/23/18 10:50 Dose: 2 mg Ondansetron HCl (Zofran Inj) 4 mg IV.PUSH Q6H PRN PRN Reason: NAUSEA OR VOMITING Pharmacy Profile Note (Vancomycin Consult Pharmacy) 1 each OTHER UNSCH PRN PRN Reason: Pharmacy to dose Senna/Docusate Sodium (Nicky-Colace) 1 tab PO BID ANGELO Last Admin: 05/23/18 10:51 Dose: 1 tab Sennosides (Senokot) 17.2 mg PO Q12H PRN PRN Reason: Moderate Constipation Allergies Allergy/AdvReac Type Severity Reaction Status Date / Time No Known Allergies Allergy Verified 05/22/18 18:02 Home Medications Medication Instructions Recorded Confirmed Type atorvastatin [Lipitor] 20 mg PO DAILY 05/22/18 05/22/18 History metformin 500 mg PO BID 05/22/18 05/22/18 History aripiprazole 5 mg PO DAILY 05/23/18 05/23/18 History escitalopram oxalate [Lexapro] 10 mg PO DAILY 05/23/18 05/23/18 History zolpidem [Ambien] 10 mg HS PRN 05/23/18 05/23/18 History Exam Vital signs: Vital Signs 05/22/18 17:59 05/22/18 20:03 05/22/18 20:07 Temperature 100.5 F H Pulse Rate 92 H 90 Respiratory Rate 16 20 Blood Pressure 159/69 H 135/65 Pulse Oximetry 98 98 100 05/22/18 21:14 05/22/18 22:53 05/22/18 23:12 Temperature 99.1 F 98.3 F Pulse Rate 77 85 80 Respiratory Rate 19 16 16 Blood Pressure 126/61 161/55 H 140/81 Pulse Oximetry 96 100 100 05/22/18 23:27 05/22/18 23:42 05/23/18 00:00 Temperature 98.6 F Pulse Rate 74 75 68 Respiratory Rate 16 16 16 Blood Pressure 141/68 H 136/60 116/82 Pulse Oximetry 97 93 L 97 05/23/18 00:28 05/23/18 04:00 05/23/18 08:00 Temperature 97.8 F 97.7 F Pulse Rate 75 61 62 Respiratory Rate 16 20 Blood Pressure 108/62 108/63 Pulse Oximetry 95 96 05/23/18 08:14 Temperature Pulse Rate Respiratory Rate 20 Blood Pressure Pulse Oximetry Intake & Output 05/22/18 05/23/18 05/23/18 18:59 06:59 18:59 Intake Total 2592 / 2592 578 / 578 Output Total 1800 / 1800 Balance 792 / 792 578 / 578 Weight 93.2 kg 73.4 kg Intake: IV 1372 / 1372 578 / 578 NS Inj 1,000 ML @ 100 mls/hr IV 522 / 522 478 / 478 .CONT .Q10H [facility] Rx#:[id number] Ofirmev Inj 1,000 mg In 100 ml 100 / 100 @ 0 mls/hr IV.SIG .STK-MED ONE Rx#:[id number] Zosyn 4.5 GM Premix 4.5 gm In 100 / 100 100 / 100 100 ml @ 200 mls/hr IV.SIG Q6H ANGELO Rx#:[id number] NS Inj 1,000 ML @ Wide Open IV. 400 / 400 SIG BOLUS [facility] Rx#:[id number] Vancomycin Inj 1,000 MG In NS 250 / 250 Inj 250 ML @ 250 mls/hr IV.SIG [facility] ANGELO Rx#:[id number] Oral 120 / 120 Anesthesia Amount 1100 / 1100 Output: Urine 1800 / 1800 Other: Date of Last Bowel Movement 05/21/18 05/21/18 Weight On Admission 92.986 kg Narrative: GENERAL: NAD SKIN: Warm and dry. Left hand in dressing-neurovascular intact HEAD: Atraumatic. Normocephalic. EYES: Pupils equal and round. No scleral icterus. No injection or drainage. ENT: No nasal bleeding or discharge. Mucous membranes pink and moist. NECK: Trachea midline. No JVD. CARDIOVASCULAR: Regular rate and rhythm. RESPIRATORY: No accessory muscle use. Clear to auscultation. Breath sounds equal bilaterally. GASTROINTESTINAL: Abdomen soft, non-tender, nondistended. Hepatic and splenic margins not palpable. MUSCULOSKELETAL: Extremities without clubbing, cyanosis, or edema. No obvious deformities. NEUROLOGICAL: Awake and alert. No obvious cranial nerve deficits. Motor grossly within normal limits. Five out of 5 muscle strength in the arms and legs. Normal speech. PSYCHIATRIC: Appropriate mood and affect; insight and judgment normal. Results - Labs CBC & Chem 7: 05/23/18 05:10 05/23/18 05:10 Labs: Laboratory Results - last 24 hr 05/22/18 05/22/18 05/22/18 19:15 19:15 19:15 CBC w Diff Auto diff final WBC 10.7 RBC 4.19 L Hgb 11.1 L Hct 32.6 L MCV 77.8 L MCH 26.4 L MCHC 33.9 RDW 14.0 Plt Count 239 MPV 9.4 Neut % (Auto) 78.2 H Lymph % (Auto) 11.7 [place] % (Auto) 8.9 H Eos % (Auto) 1.0 Baso % (Auto) 0.2 Neut # (Auto) 8.3 H Lymph # (Auto) 1.3 [place] # (Auto) 1.0 H Eos # (Auto) 0.1 Baso # (Auto) 0.0 WBC Differential . Differential Comment . PT 11.1 INR 1.1 APTT 27.0 Sodium 133 L Potassium 3.6 Chloride 103 Carbon Dioxide 18.5 L Anion Gap 12 BUN 55 H Creatinine 2.20 H Estimated GFR 32 L POC Glucose Random Glucose 225 H Lactic Acid Calcium 8.2 L Total Bilirubin 0.8 AST 232 H ALT 219 H Alkaline Phosphatase 97 Total Protein 7.0 Albumin 3.2 L 05/22/18 05/22/18 05/23/18 19:15 23:06 05:10 CBC w Diff Auto diff final WBC 8.1 RBC 3.97 L Hgb 10.3 L Hct 31.4 L MCV 79.1 L MCH 25.9 L MCHC 32.7 RDW 13.6 Plt Count 220 MPV 8.5 Neut % (Auto) 68.4 Lymph % (Auto) 19.6 [place] % (Auto) 9.9 H Eos % (Auto) 1.8 Baso % (Auto) 0.3 Neut # (Auto) 5.6 Lymph # (Auto) 1.6 [place] # (Auto) 0.8 Eos # (Auto) 0.1 Baso # (Auto) 0.0 WBC Differential . Differential Comment . PT INR APTT Sodium Potassium Chloride Carbon Dioxide Anion Gap BUN Creatinine Estimated GFR POC Glucose 211 H Random Glucose Lactic Acid 0.9 Calcium Total Bilirubin AST ALT Alkaline Phosphatase Total Protein Albumin 05/23/18 05/23/18 05/23/18 05:10 07:16 11:13 CBC w Diff WBC RBC Hgb Hct MCV MCH MCHC RDW Plt Count MPV Neut % (Auto) Lymph % (Auto) [place] % (Auto) Eos % (Auto) Baso % (Auto) Neut # (Auto) Lymph # (Auto) [place] # (Auto) Eos # (Auto) Baso # (Auto) WBC Differential Differential Comment PT INR APTT Sodium 140 Potassium 3.6 Chloride 109 H Carbon Dioxide 22.0 Anion Gap 9 BUN 38 H Creatinine 1.60 H Estimated GFR 46 L POC Glucose 181 H 304 H Random Glucose 205 H Lactic Acid Calcium 7.7 L Total Bilirubin 0.8 AST 162 H ALT 177 H Alkaline Phosphatase 79 Total Protein 6.0 L D Albumin 2.6 L D 05/23/18 11:15 CBC w Diff WBC RBC Hgb Hct MCV MCH MCHC RDW Plt Count MPV Neut % (Auto) Lymph % (Auto) [place] % (Auto) Eos % (Auto) Baso % (Auto) Neut # (Auto) Lymph # (Auto) [place] # (Auto) Eos # (Auto) Baso # (Auto) WBC Differential Differential Comment PT INR APTT Sodium Potassium Chloride Carbon Dioxide Anion Gap BUN Creatinine Estimated GFR POC Glucose 255 H Random Glucose Lactic Acid Calcium Total Bilirubin AST ALT Alkaline Phosphatase Total Protein Albumin - Imaging Impressions Hand X-Ray 05/22/18 19:07 CONCLUSION: Generalized soft tissue swelling of the thenar eminence without radiopaque foreign body. Caprini VTE Risk Assessment Caprini VTE Risk Assessment: No/Low Risk (score <= 1) Caprini Risk Assessment Model: Point Value = 1 Point Value = 2 Point Value = 3 Point Value = 5 Age 41-60 Minor surgery BMI > 25 kg/m2 Swollen legs Varicose veins or History of unexplained or recurrent spontaneous Oral contraceptives or hormone replacement Sepsis (< 1 month) Serious lung disease, including pneumonia (< 1 month) Abnormal pulmonary function Acute myocardial infarction Congestive heart failure (< 1 month) History of inflammatory bowel disease Medical patient at bed rest Age 61-74 Arthroscopic surgery Major open surgery (> 45 min) Laparoscopic surgery (> 45 min) Malignancy Confined to bed (> 72 hours) Immobilizing plaster cast Central venous access Age >= 75 History of VTE Family history of VTE Factor V Leiden Prothrombin [id number] Lupus anticoagulant Anticardiolipin antibodies Elevated serum homocysteine Heparin-induced thrombocytopenia Other congenital or acquired thrombophilia Stroke (< 1 month) Elective arthroplasty Hip, pelvis, or leg fracture Acute spinal cord injury (< 1 month) Prophylaxis Regimen: Total Risk Factor Score Risk Level Prophylaxis Regimen 0-1 Low Early ambulation 2 Moderate Order ONE of the following: *Sequential Compression Device (SCD) *Heparin 5000 units SQ BID 3-4 Higher Order ONE of the following medications: *Heparin 5000 units SQ TID *Enoxaparin/Lovenox 40 mg SQ daily (WT < 150 kg, CrCl > 30 mL/min) *Enoxaparin/Lovenox 30 mg SQ daily (WT < 150 kg, CrCl > 10-29 mL/min) *Enoxaparin/Lovenox 30 mg SQ BID (WT < 150 kg, CrCl > 30 mL/min) AND/OR *Sequential Compression Device (SCD) 5 or more Highest Order ONE of the following medications: *Heparin 5000 units SQ TID (Preferred with Epidurals) *Enoxaparin/Lovenox 40 mg SQ daily (WT < 150 kg, CrCl > 30 mL/min) *Enoxaparin/Lovenox 30 mg SQ daily (WT < 150 kg, CrCl > 10-29 mL/min) *Enoxaparin/Lovenox 30 mg SQ BID (WT < 150 kg, CrCl > 30 mL/min) AND *Sequential Compression Device (SCD) Assessment and Plan - Assessment (1) Abscess of hand, left Code(s): L02.512 - Cutaneous abscess of left hand Status: Acute (2) Transaminitis Code(s): R74.0 - Nonspecific elevation of levels of transaminase and lactic acid dehydrogenase [LDH] Status: Acute (3) IVDU (intravenous drug user) Code(s): F19.90 - Other psychoactive substance use, unspecified, uncomplicated Status: Acute (4) Diabetes mellitus, type 2 Code(s): E11.9 - Type 2 diabetes mellitus without complications Status: Acute - Plan 48-year-old man with Left thumb abscess Hand x-ray noted and reviewed by me with finding of Generalized soft tissue swelling of the thenar eminence without radiopaque foreign body Hand surgery was consulted and patient is status post incision and drainage left hand/thenar abscess thenar compartment release left hand 05/22/18 Currently on IV vancomycin and Zosyn pending culture report Pain management accordingly History of IVDU Patient extensively counseled against Transaminitis Secondary to history of IVDU, will check hepatitis profile and treat accordingly Hold Statin Diabetes type 2 Resume oral hypoglycemic agent, and start insulin sliding scale Check hemoglobin A1c Acute renal injury Prerenal, continue with gentle IV fluid hydration and monitor BUN and creatinine Hyperlipidemia Hold statin secondary to elevated LFTs Hypertension Resume lisinopril in a.m. DVT prophylaxis: Bilateral SCDs (4) Diabetes mellitus, type 2 Qualifiers: Diabetes mellitus half-way insulin use: without half-way use Diabetes mellitus complication status: without complication Qualified Code(s): E11.9 - Type 2 diabetes mellitus without complications
[2018-05-23] MEDS: Insulin NovoLOG Aspart Correctional Sugar Inj SQ SCH ×3 (11:44→21:48)
[2018-05-23 11:59] LABS: Barbiturate Screen,Urine Neg (Neg); Cannabinoid Screen,Urine Neg (Neg)
[2018-05-23 12:00] LABS: Amphetamine Screen,Urine Neg (Neg); Cocaine Screen,Urine Pos (Neg)
[2018-05-23 12:02] LABS: Opiate Screen,Urine Pos (Neg)
[2018-05-23 14:37] LABS: Hepatitis A IgM Antibody Nonreactive (Nonreactive); Hepatitits B Surface Antigen Nonreactive (Nonreactive)
[2018-05-23] MEDS: Vancomycin Inj 1,250 MG in Sodium Chlor 0.9% Inj 250 ML IV.SIG SCH (16:03)
[2018-05-24] MEDS: Piperacil/Tazo 4.5 GM Premix 4.5 GM/100 ML BAG IV.SIG SCH ×5 (00:34→23:34)
[2018-05-24] MEDS: Morphine Sulfate Inj 2 MG/ML Vial IV.PUSH PRN ×7 (01:18→22:14)
[2018-05-24 06:32] LABS: Baso % (Auto) 0.3 % (0.0-2.0); Eos # (Auto) 0.1 th/mm3 (0.0-0.4); Eos % (Auto) 1.9 % (0.0-4.0); Hematocrit 30.3 % (39.0-51.0); Hemoglobin 9.6 gm/dL (13.0-17.0); Lymph # (Auto) 1.4 th/mm3 (1.0-4.8); Lymph % (Auto) 26.8 % (9.0-44.0); Mean Corpuscular HGB Conc 31.8 % (32.0-36.0); Mean Corpuscular Hemoglobin 25.7 pg (27.0-34.0); Mean Corpuscular Volume 80.9 fL (80.0-100.0); Mean Platelet Volume 8.7 fL (7.0-11.0); Mono # (Auto) 0.5 th/mm3 (0.0-0.9); Mono % (Auto) 10.4 % (0.0-8.0); Neut # (Auto) 3.2 th/mm3 (1.8-7.7); Neut % (Auto) 60.6 % (16.0-70.0); Platelet Count 217 th/mm3 (150-450); Red Blood Count 3.74 mil/mm3 (4.50-5.90); Red Cell Distribution Width 13.6 % (11.6-17.2); White Blood Count 5.2 th/mm3 (4.0-11.0)
[2018-05-24 06:39] LABS: Chloride 109 meq/L (98-107); Potassium 3.7 meq/L (3.5-5.1); Sodium 141 meq/L (136-145)
[2018-05-24 06:43] LABS: Albumin 2.5 g/dL (3.4-5.0); Anion Gap 8 meq/L (5-15); Calcium 7.8 mg/dL (8.5-10.1); Carbon Dioxide 24.3 meq/L (21.0-32.0); Glucose,Random 190 mg/dL (74-106)
[2018-05-24 07:07] LABS: Alanine Aminotransferase 146 U/L (12-78); Alkaline Phosphatase 72 U/L (45-117); Aspartate Aminotransferase 110 U/L (15-37); Blood Urea Nitrogen 14 mg/dL (7-18); Glomerular Filtration Rate 81 mL/min (>89); Total Protein 5.7 g/dL (6.4-8.2)
[2018-05-24] MEDS: Insulin NovoLOG Aspart Correctional Sugar Inj SQ SCH ×4 (07:37→20:44)
[2018-05-24] MEDS: Lisinopril 10 MG Tablet PO SCH (09:36)
[2018-05-24] MEDS: Escitalopram 10 MG Tablet PO SCH (09:36)
[2018-05-24] MEDS: Senna/Docusate Sodium 8.6/50 MG Tablet PO SCH ×2 (09:36→20:45)
[2018-05-24] MEDS: ARIPiprazole 5 MG Tablet PO SCH (09:45)
--- NOTE | 2018-05-24 10:41 | P.PN ---
Subjective Interval history: Follow-up Left thumb abscess s/p I&D May 24, 2018-patient seen and examined, complains of inadequate pain control to the left arm. Afebrile. No acute event overnight otherwise. Physical Exam Vital signs: Vital Signs 05/23/18 11:44 05/23/18 12:00 05/23/18 16:00 Temperature 97.9 F 98.4 F Pulse Rate 68 77 Respiratory Rate 20 18 18 Blood Pressure 133/77 126/68 Pulse Oximetry 97 95 05/23/18 18:41 05/23/18 20:00 05/24/18 00:00 Temperature 97.4 F L Pulse Rate 91 H Respiratory Rate 20 16 18 Blood Pressure 156/91 H Pulse Oximetry 92 L 05/24/18 05:59 05/24/18 08:00 Temperature 97.8 F Pulse Rate 70 Respiratory Rate 18 20 Blood Pressure 155/82 H Pulse Oximetry 99 Intake & Output 05/23/18 05/24/18 05/24/18 18:59 06:59 18:59 Intake Total 2440.5 / 2440.5 1940 / 1940 240 / 240 Output Total 1999 / 1999 200 / 200 Balance 2440.5 / 2440.5 -60 / -60 40 / 40 Weight 97.7 kg Intake: IV 2440.5 / 2440.5 1300 / 1300 0 / 0 NS Inj 1,000 ML @ 100 mls/hr IV 1478 / 1478 .CONT .Q10H [facility] Rx#:[id number] LR 1000 mL Inj 1,000 ML @ 30 1000 / 1000 mls/hr IV.SIG .Q24H [facility]O Rx#: [id number] Zosyn 4.5 GM Premix 4.5 gm In 200 / 200 300 / 300 100 ml @ 200 mls/hr IV.SIG Q6H [facility] Rx#:[id number] Vancomycin Inj 1,250 MG In NS 262.5 / 262.5 Inj 250 ML @ 262.5 mls/hr IV. SIG Q24H [facility] Rx#:[id number] Oral 640 / 640 240 / 240 Output: Urine 1999 / 1999 200 / 200 Other: # Voids 4 2 Date of Last Bowel Movement 05/21/18 05/21/18 # Bowel Movements 2 Narrative: GENERAL: NAD SKIN: Warm and dry. Left hand in dressing-neurovascular intact HEAD: Atraumatic. Normocephalic. EYES: Pupils equal and round. No scleral icterus. No injection or drainage. ENT: No nasal bleeding or discharge. Mucous membranes pink and moist. NECK: Trachea midline. No JVD. CARDIOVASCULAR: Regular rate and rhythm. RESPIRATORY: No accessory muscle use. Clear to auscultation. Breath sounds equal bilaterally. GASTROINTESTINAL: Abdomen soft, non-tender, nondistended. Hepatic and splenic margins not palpable. MUSCULOSKELETAL: Extremities without clubbing, cyanosis, or edema. No obvious deformities. NEUROLOGICAL: Awake and alert. No obvious cranial nerve deficits. Motor grossly within normal limits. Five out of 5 muscle strength in the arms and legs. Normal speech. PSYCHIATRIC: Appropriate mood and affect; insight and judgment normal. Results - Labs CBC & Chem 7: 05/24/18 05:35 05/24/18 05:35 Laboratory Results - last 24 hr 05/23/18 05/23/18 05/23/18 05:10 11:13 11:15 CBC w Diff WBC RBC Hgb Hct MCV MCH MCHC RDW Plt Count MPV Neut % (Auto) Lymph % (Auto) [place] % (Auto) Eos % (Auto) Baso % (Auto) Neut # (Auto) Lymph # (Auto) [place] # (Auto) Eos # (Auto) Baso # (Auto) WBC Differential Differential Comment Sodium Potassium Chloride Carbon Dioxide Anion Gap BUN Creatinine Estimated GFR POC Glucose 304 H 255 H Random Glucose Calcium Total Bilirubin AST ALT Alkaline Phosphatase Total Protein Albumin Urine Opiates Screen Ur Barbiturates Screen Ur Amphetamines Screen U Benzodiazepines Scrn Urine Cocaine Screen U Cannabinoids Screen Hepatitis A IgM Ab Nonreactive Hep Bs Antigen Nonreactive Hep B Core IgM Ab Nonreactive Hep C IgG Ab Nonreactive 05/23/18 05/23/18 05/23/18 11:40 16:50 20:17 CBC w Diff WBC RBC Hgb Hct MCV MCH MCHC RDW Plt Count MPV Neut % (Auto) Lymph % (Auto) [place] % (Auto) Eos % (Auto) Baso % (Auto) Neut # (Auto) Lymph # (Auto) [place] # (Auto) Eos # (Auto) Baso # (Auto) WBC Differential Differential Comment Sodium Potassium Chloride Carbon Dioxide Anion Gap BUN Creatinine Estimated GFR POC Glucose 91 143 H Random Glucose Calcium Total Bilirubin AST ALT Alkaline Phosphatase Total Protein Albumin Urine Opiates Screen Pos H Ur Barbiturates Screen Neg Ur Amphetamines Screen Neg U Benzodiazepines Scrn Pos H Urine Cocaine Screen Pos H U Cannabinoids Screen Neg Hepatitis A IgM Ab Hep Bs Antigen Hep B Core IgM Ab Hep C IgG Ab 05/24/18 05/24/18 05/24/18 05:35 05:35 07:06 CBC w Diff Auto diff final WBC 5.2 RBC 3.74 L Hgb 9.6 L Hct 30.3 L MCV 80.9 MCH 25.7 L MCHC 31.8 L RDW 13.6 Plt Count 217 MPV 8.7 Neut % (Auto) 60.6 Lymph % (Auto) 26.8 [place] % (Auto) 10.4 H Eos % (Auto) 1.9 Baso % (Auto) 0.3 Neut # (Auto) 3.2 Lymph # (Auto) 1.4 [place] # (Auto) 0.5 Eos # (Auto) 0.1 Baso # (Auto) 0.0 WBC Differential . Differential Comment . Sodium 141 Potassium 3.7 Chloride 109 H Carbon Dioxide 24.3 Anion Gap 8 BUN 14 Creatinine 0.99 Estimated GFR 81 L POC Glucose 204 H Random Glucose 190 H Calcium 7.8 L Total Bilirubin 0.7 AST 110 H ALT 146 H Alkaline Phosphatase 72 Total Protein 5.7 L Albumin 2.5 L Urine Opiates Screen Ur Barbiturates Screen Ur Amphetamines Screen U Benzodiazepines Scrn Urine Cocaine Screen U Cannabinoids Screen Hepatitis A IgM Ab Hep Bs Antigen Hep B Core IgM Ab Hep C IgG Ab Microbiology 05/22/18 21:58 Abscess - Hand Acid Fast Bacilli Smear - Final No acid fast bacilli seen 05/22/18 21:58 Abscess - Hand Fungal Smear - Final No fungal elements seen 05/22/18 21:58 Abscess - Hand Gram Stain - Final 05/22/18 19:05 Blood - Peripheral Aerobic Blood Culture - Preliminary No growth in 1 day 05/22/18 19:05 Blood - Peripheral Anaerobic Blood Culture - Preliminary No growth in 1 day 05/22/18 19:00 Blood - Peripheral Aerobic Blood Culture - Preliminary No growth in 1 day 05/22/18 19:00 Blood - Peripheral Anaerobic Blood Culture - Preliminary No growth in 1 day Assessment and Plan - Assessment (1) Abscess of hand, left Code(s): L02.512 - Cutaneous abscess of left hand Status: Acute (2) Transaminitis Code(s): R74.0 - Nonspecific elevation of levels of transaminase and lactic acid dehydrogenase [LDH] Status: Acute (3) IVDU (intravenous drug user) Code(s): F19.90 - Other psychoactive substance use, unspecified, uncomplicated Status: Acute (4) Diabetes mellitus, type 2 Code(s): E11.9 - Type 2 diabetes mellitus without complications Status: Acute - Plan 48-year-old man with Left thumb abscess Hand x-ray with finding of Generalized soft tissue swelling of the thenar eminence without radiopaque foreign body Hand surgery was consulted and patient is status post incision and drainage left hand/thenar abscess thenar compartment release left hand 05/22/18 Currently on IV vancomycin and Zosyn; report negative to date Will consult infectious disease specialist for recommendation on therapy Pain management accordingly History of IVDU Patient extensively counseled against Transaminitis Secondary to history of IVDU, Hepatitis profile negative Hold Statin Diabetes type 2 Continue oral hypoglycemic agent, and start insulin sliding scale Hemoglobin A1c pending Acute renal injury Prerenal, resolved with IV fluid hydration Hyperlipidemia Hold statin secondary to elevated LFTs Hypertension Continue lisinopril DVT prophylaxis: Bilateral SCDs (4) Diabetes mellitus, type 2 Qualifiers: Diabetes mellitus fdc insulin use: 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
--- NOTE | 2018-05-24 15:40 | ECG ---
Date Performed: 05/22/2018 Time Performed: 21:23:17 PTAGE: 48 years EKG: Sinus rhythm NONSPECIFIC T-WAVE ABNORMALITY BORDERLINE ECG NO PREVIOUS TRACING DOCTOR: Mahad Parham Interpretating Date/Time 05/24/2018 15:38:28
[2018-05-24] MEDS: Vancomycin Inj 1,250 MG in Sodium Chlor 0.9% Inj 250 ML IV.SIG SCH (16:13)
[2018-05-24] MEDS ORDERED: Morphine Sulfate Inj 2 MG/ML Vial IV.PUSH ONE (19:00)
--- NOTE | 2018-05-24 19:28 | P.CONID ---
<Jacque Santos - Last Filed: 05/24/18 19:29> History of Present Illness Service: INFECTIOUS DISEASE DR GRANT Consult date: 05/24/18 Requesting Physician: Kashmir Le Reason for Consult: LEFT FINGER INFECTION Primary Care Provider: Patel Maldonado DO Chief Complaint: Painful and swollen left thumb History of Present Illness: 48 YR OLD MALE PT ADMITTED WITH LEFT THUMB SWELLING AND PAIN. 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 HE HOWEVER ALSO ADMITTS TO A MONTH OF IVDA. HE STATES HE HAS BEEN TRYING TO INJECT IN HIS LEFT WRIST MULTIPLE TIMES AND STATES HE HAD MISSED. HE STARTED USING NASAL COCAINE RECENTLY UPON URGING OF A FRIEND. HE DENIES ANY FEVER OR CHILLS. HE WAS ADMITTED AND TAKEN TO OR FOR I&D. HE HAS SOME PAIN BUT STATES TODAY THE FINGER IS BETTER AND LESS SWOLLEN. Review of Systems Constitutional: Denies anorexia, Denies body ache(s), Denies chills, Denies daytime sleepiness, Denies increased appetite, Denies weight gain Eyes: Denies bulging eyes Ears, Nose, Mouth, and Throat: Denies difficulty swallowing Cardiovascular: Denies chest pain Respiratory: Denies change in phlegm color Gastrointestinal: Denies abdominal pain Genitourinary: Denies blood in semen Musculoskeletal: Denies abnormal walking Skin/Breast: Reports redness (LEFT THUMB), Denies bleeding lesions Neurologic: Denies abnormal hearing Psychiatric: Reports depression (STATES HE IS SEEING A PSYCHATRIST RECENTLY ) Endocrine: Denies cold intolerance Hematologic/Lymphatic: Denies easy bleeding PMFSH - History History Provided By: Patient - Medical History Medical History: Medical History (Last Reviewed 05/22/18 @ 19:19 by Leni Lewis) Diabetes mellitus High cholesterol Hypertension - Surgical History Surgical History: Surgical History (Last Reviewed 05/22/18 @ 19:19 by Leni Lewis) History of surgery of head - Family History Family History: Family History (Last Updated 05/23/18 @ 11:43 by Kashmir Le MD) Other Adopted - Tobacco History Second Hand Smoke Exposure: No Tobacco Use In Past 30 Days: No Smoking Status: Never smoker - Alcohol History How Often Do You Have a Drink Containing Alcohol: Never - Substance Use History Substance History: Active Abuse - Substance Use Type Crack/Cocaine Status: Active Route Used: Intravenously Reason for Use: Feels Good Comment: unable to obtain details Other Type: Dilaudid Status: Active Route Used: Intravenously Reason for Use: Feels Good Comment: unable to obtain details - Travel History Recent Travel in the [place] Within the Last 8 Weeks: No Recent Travel Out of the Country Within the Last 8 Weeks: No - Immunization History Tetanus Immunization: <5 Years Tetanus Immunization Year if Known: 2017 Hx Influenza Vaccine This Season: No Medications and Allergies Allergies Allergy/AdvReac Type Severity Reaction Status Date / Time No Known Allergies Allergy Verified 05/22/18 18:02 Home Medications Medication Instructions Recorded Confirmed Type atorvastatin [Lipitor] 20 mg PO DAILY 05/22/18 05/22/18 History metformin 500 mg PO BID 05/22/18 05/22/18 History aripiprazole 5 mg PO DAILY 05/23/18 05/23/18 History escitalopram oxalate [Lexapro] 10 mg PO DAILY 05/23/18 05/23/18 History zolpidem [Ambien] 10 mg HS PRN 05/23/18 05/23/18 History Active Medications: Active Medications Acetaminophen (Tylenol) 650 mg PO Q4H PRN PRN Reason: Temp > 100.4 Al Hydroxide/Mg Hydroxide (Milk Of Magnbret Liq) 30 ml PO Q12H PRN PRN Reason: Mild Constipation Aripiprazole (Abilify) 5 mg PO DAILY [facility] Last Admin: 05/24/18 09:45 Dose: 5 mg Bisacodyl (Dulcolax Supp) 10 mg RECTAL DAILY PRN PRN Reason: SEVERE CONSITIPATION Dextrose (D50w Vial) 50 ml IV.PUSH UNSCH PRN PRN Reason: PER HYPOGLYCEMIA PROTOCOL Escitalopram Oxalate (Lexapro) 10 mg PO DAILY [facility] Last Admin: 05/24/18 09:36 Dose: 10 mg Glucagon (Glucagon Inj) 1 mg OTHER PRN PRN PRN Reason: for Hypoglycemia Protocol Sodium Chloride (Ns Inj) 1,000 mls @ 0 mls/hr IV.SIG BOLUS [facility] Last Infusion: 05/22/18 20:59 Dose: 0 mls/hr Piperacillin/Tazobactam/Dextrose (Zosyn 4.5 Gm Premix) 4.5 gm in 100 mls @ 200 mls/hr IV.SIG Q6H [facility] Last Infusion: 05/24/18 18:42 Dose: Infused Vancomycin HCl 1,250 mg/ (Sodium Chloride) 262.5 mls @ 262.5 mls/hr IV.SIG Q24H [facility] Last Infusion: 05/24/18 17:13 Dose: Infused Insulin Aspart (Novolog Insulin Correctional Sugar Inj) 0 unit SQ ACHS [facility]; Protocol Last Admin: 05/24/18 16:45 Dose: 2 unit Lactulose (Lactulose Liq) 30 ml PO DAILY PRN PRN Reason: SEVERE CONSITIPATION Lisinopril (Prinivil) 10 mg PO DAILY [facility] Last Admin: 05/24/18 09:36 Dose: 10 mg Miscellaneous Information ([facility] Ordered Lab Info) 0 each OTHER ONCE ONE Stop: 05/25/18 15:46 Morphine Sulfate (Morphine Inj) 2 mg IV.PUSH Q4H PRN PRN Reason: PAIN 6-10 Last Admin: 05/24/18 18:34 Dose: 2 mg Ondansetron HCl (Zofran Inj) 4 mg IV.PUSH Q6H PRN PRN Reason: NAUSEA OR VOMITING Pharmacy Profile Note (Vancomycin Consult Pharmacy) 1 each OTHER UNSCH PRN PRN Reason: Pharmacy to dose Senna/Docusate Sodium (Nicky-Colace) 1 tab PO BID [facility] Last Admin: 05/24/18 09:36 Dose: 1 tab Sennosides (Senokot) 17.2 mg PO Q12H PRN PRN Reason: Moderate Constipation Zolpidem Tartrate (Ambien) 10 mg PO HS PRN PRN Reason: INSOMNIA Last Admin: 05/23/18 21:41 Dose: 10 mg Exam Vital signs: Vital Signs 05/23/18 20:00 05/24/18 00:00 05/24/18 05:59 Temperature 97.4 F L Pulse Rate 91 H Respiratory Rate 16 18 18 Blood Pressure 156/91 H Pulse Oximetry 92 L 05/24/18 08:00 05/24/18 09:47 05/24/18 12:00 Temperature 97.8 F 97.7 F Pulse Rate 70 63 Respiratory Rate 20 18 20 Blood Pressure 155/82 H 144/83 H Pulse Oximetry 99 98 05/24/18 13:39 05/24/18 16:00 05/24/18 17:42 Temperature 97.5 F L Pulse Rate 74 Respiratory Rate 18 21 18 Blood Pressure 137/78 Pulse Oximetry 98 05/24/18 18:36 Temperature Pulse Rate Respiratory Rate 18 Blood Pressure Pulse Oximetry Intake & Output 05/24/18 05/24/18 05/25/18 06:59 18:59 06:59 Intake Total 1939 942.5 / 942.5 Output Total 1999 1200 / 1200 Balance -60 / -60 -257.5 / -257.5 Weight 97.7 kg Intake: IV 1300 / 1300 462.5 / 462.5 LR 1000 mL Inj 1,000 ML @ 30 1000 / 1000 mls/hr IV.SIG .Q24H [facility] Rx#: [id number] Zosyn 4.5 GM Premix 4.5 gm In 300 / 300 200 / 200 100 ml @ 200 mls/hr IV.SIG Q6H [facility] Rx#:[id number] Vancomycin Inj 1,250 MG In NS 262.5 / 262.5 Inj 250 ML @ 262.5 mls/hr IV. SIG Q24H ANG[facility]O Rx#:[id number] Oral 640 / 640 480 / 480 Output: Urine 1999 1200 / 1200 Other: # Voids 2 Date of Last Bowel Movement 05/21/18 05/23/18 - Constitutional no acute distress - Routine HEENT Exam Head: Present: normocephalic Eye: Present: EOMI, PERRL ENT: Present: mucous membranes moist - Routine Neck Exam Present: supple - Routine Chest/Breast/Axilla Exam Chest wall: Absent: tenderness - Routine Respiratory Exam Absent: accessory muscle use - Routine Cardiovascular Exam Present: RRR, S1, S2 - Routine Abdominal Exam Present: soft, normoactive bowel sounds - Routine Extremities Exam Absent: cyanosis - Routine Skin Exam Present: intact, wounds (LEFT HAND WITH SURIGICAL DRSG. HE IS ABLE TO MOVE ALL EXTREMITIES) - Routine Neurological Exam Present: alert, oriented X3, normal speech - Detailed Psychiatric Exam Mood and affect: Present: flat Results - Labs CBC & Chem 7: 05/24/18 05:35 05/24/18 05:35 Labs: Laboratory Results - last 24 hr 05/23/18 05/24/18 05/24/18 20:17 05:35 05:35 CBC w Diff Auto diff final WBC 5.2 RBC 3.74 L Hgb 9.6 L Hct 30.3 L MCV 80.9 MCH 25.7 L MCHC 31.8 L RDW 13.6 Plt Count 217 MPV 8.7 Neut % (Auto) 60.6 Lymph % (Auto) 26.8 [place] % (Auto) 10.4 H Eos % (Auto) 1.9 Baso % (Auto) 0.3 Neut # (Auto) 3.2 Lymph # (Auto) 1.4 [place] # (Auto) 0.5 Eos # (Auto) 0.1 Baso # (Auto) 0.0 WBC Differential . Differential Comment . Sodium 141 Potassium 3.7 Chloride 109 H Carbon Dioxide 24.3 Anion Gap 8 BUN 14 Creatinine 0.99 Estimated GFR 81 L POC Glucose 143 H Random Glucose 190 H Calcium 7.8 L Total Bilirubin 0.7 AST 110 H ALT 146 H Alkaline Phosphatase 72 Total Protein 5.7 L Albumin 2.5 L 05/24/18 05/24/18 05/24/18 07:06 11:12 16:29 CBC w Diff WBC RBC Hgb Hct MCV MCH MCHC RDW Plt Count MPV Neut % (Auto) Lymph % (Auto) [place] % (Auto) Eos % (Auto) Baso % (Auto) Neut # (Auto) Lymph # (Auto) [place] # (Auto) Eos # (Auto) Baso # (Auto) WBC Differential Differential Comment Sodium Potassium Chloride Carbon Dioxide Anion Gap BUN Creatinine Estimated GFR POC Glucose 204 H 173 H 192 H Random Glucose Calcium Total Bilirubin AST ALT Alkaline Phosphatase Total Protein Albumin Assessment and Plan - Plan A/P. LEFT HAND ABSCESS S/P I&D IVDA RECOMMENDATION VANCOMYCIN WITH ZOSYN FOR NOW WILL FU ON CULTURES COUNSELED ON DRUG USE SEEN EXAM [facility] GRANT SHOULD BE OK WITH PO ON DC <Keily Grant - Last Filed: 05/24/18 19:44> History of Present Illness Primary Care Provider: Patel Maldonado DO [facility] - Medical History Medical History: Medical History (Last Reviewed 05/22/18 @ 19:19 by Leni Lewis) Diabetes mellitus High cholesterol Hypertension - Surgical History Surgical History: Surgical History (Last Reviewed 05/22/18 @ 19:19 by Leni Lewis) History of surgery of head - Family History Family History: Family History (Last Updated 10/15/18 @ 11:43 by Kashmir Le MD) Other Adopted Medications and Allergies Active Medications: Active Medications Acetaminophen (Tylenol) 650 mg PO Q4H PRN PRN Reason: Temp > 100.4 Al Hydroxide/Mg Hydroxide (Milk Of Magnesia Liq) 30 ml PO Q12H PRN PRN Reason: Mild Constipation Aripiprazole (Abilify) 5 mg PO DAILY [facility] Last Admin: 05/24/18 09:45 Dose: 5 mg Bisacodyl (Dulcolax Supp) 10 mg RECTAL DAILY PRN PRN Reason: SEVERE CONSITIPATION Dextrose (D50w Vial) 50 ml IV.PUSH UNSCH PRN PRN Reason: PER HYPOGLYCEMIA PROTOCOL Escitalopram Oxalate (Lexapro) 10 mg PO DAILY [facility] Last Admin: 05/24/18 09:36 Dose: 10 mg Glucagon (Glucagon Inj) 1 mg OTHER PRN PRN PRN Reason: for Hypoglycemia Protocol Sodium Chloride (Ns Inj) 1,000 mls @ 0 mls/hr IV.SIG BOLUS [facility] Last Infusion: 05/22/18 20:59 Dose: 0 mls/hr Piperacillin/Tazobactam/Dextrose (Zosyn 4.5 Gm Premix) 4.5 gm in 100 mls @ 200 mls/hr IV.SIG Q6H [facility] Last Infusion: 05/24/18 18:42 Dose: Infused Vancomycin HCl 1,250 mg/ (Sodium Chloride) 262.5 mls @ 262.5 mls/hr IV.SIG Q24H [facility] Last Infusion: 05/24/18 17:13 Dose: Infused Insulin Aspart (Novolog Insulin Correctional Sugar Inj) 0 unit SQ ACHS [facility]; Protocol Last Admin: 05/24/18 16:45 Dose: 2 unit Lactulose (Lactulose Liq) 30 ml PO DAILY PRN PRN Reason: SEVERE CONSITIPATION Lisinopril (Prinivil) 10 mg PO DAILY [facility] Last Admin: 05/24/18 09:36 Dose: 10 mg Miscellaneous Information ([facility] Ordered Lab Info) 0 each OTHER ONCE ONE Stop: 05/25/18 15:46 Morphine Sulfate (Morphine Inj) 2 mg IV.PUSH Q4H PRN PRN Reason: PAIN 6-10 Last Admin: 05/24/18 18:34 Dose: 2 mg Ondansetron HCl (Zofran Inj) 4 mg IV.PUSH Q6H PRN PRN Reason: NAUSEA OR VOMITING Pharmacy Profile Note (Vancomycin Consult Pharmacy) 1 each OTHER UNSCH PRN PRN Reason: Pharmacy to dose Senna/Docusate Sodium (Nicky-Colace) 1 tab PO BID [facility] Last Admin: 05/24/18 09:36 Dose: 1 tab Sennosides (Senokot) 17.2 mg PO Q12H PRN PRN Reason: Moderate Constipation Zolpidem Tartrate (Ambien) 10 mg PO HS PRN PRN Reason: INSOMNIA Last Admin: 05/23/18 21:41 Dose: 10 mg Exam Vital signs: Vital Signs 05/23/18 20:00 05/24/18 00:00 05/24/18 05:59 Temperature 97.4 F L Pulse Rate 91 H Respiratory Rate 16 18 18 Blood Pressure 156/91 H Pulse Oximetry 92 L 05/24/18 08:00 05/24/18 09:47 05/24/18 12:00 Temperature 97.8 F 97.7 F Pulse Rate 70 63 Respiratory Rate 20 18 20 Blood Pressure 155/82 H 144/83 H Pulse Oximetry 99 98 05/24/18 13:39 05/24/18 16:00 05/24/18 17:42 Temperature 97.5 F L Pulse Rate 74 Respiratory Rate 18 21 18 Blood Pressure 137/78 Pulse Oximetry 98 05/24/18 18:36 Temperature Pulse Rate Respiratory Rate 18 Blood Pressure Pulse Oximetry Intake & Output 05/24/18 05/24/18 05/25/18 06:59 18:59 06:59 Intake Total 1939 / 1939 942.5 / 942.5 Output Total 1999 1200 / 1200 Balance -60 / -60 -257.5 / -257.5 Weight 97.7 kg Intake: IV 1300 / 1300 462.5 / 462.5 LR 1000 mL Inj 1,000 ML @ 30 1000 / 1000 mls/hr IV.SIG .Q24H [facility] Rx#: [id number] Zosyn 4.5 GM Premix 4.5 gm In 300 / 300 200 / 200 100 ml @ 200 mls/hr IV.SIG Q6H [facility] Rx#:[id number] Vancomycin Inj 1,250 MG In NS 262.5 / 262.5 Inj 250 ML @ 262.5 mls/hr IV. SIG Q24H [facility] Rx#:[id number] Oral 640 / 640 480 / 480 Output: Urine 1999 / 1999 1200 / 1200 Other: # Voids 2 Date of Last Bowel Movement 05/21/18 05/23/18 Results - Labs CBC & Chem 7: 05/24/18 05:35 05/24/18 05:35 Labs: Laboratory Results - last 24 hr 05/23/18 05/24/18 05/24/18 20:17 05:35 05:35 CBC w Diff Auto diff final WBC 5.2 RBC 3.74 L Hgb 9.6 L Hct 30.3 L MCV 80.9 MCH 25.7 L MCHC 31.8 L RDW 13.6 Plt Count 217 MPV 8.7 Neut % (Auto) 60.6 Lymph % (Auto) 26.8 [place] % (Auto) 10.4 H Eos % (Auto) 1.9 Baso % (Auto) 0.3 Neut # (Auto) 3.2 Lymph # (Auto) 1.4 [place] # (Auto) 0.5 Eos # (Auto) 0.1 Baso # (Auto) 0.0 WBC Differential . Differential Comment . Sodium 141 Potassium 3.7 Chloride 109 H Carbon Dioxide 24.3 Anion Gap 8 BUN 14 Creatinine 0.99 Estimated GFR 81 L POC Glucose 143 H Random Glucose 190 H Calcium 7.8 L Total Bilirubin 0.7 AST 110 H ALT 146 H Alkaline Phosphatase 72 Total Protein 5.7 L Albumin 2.5 L 05/24/18 05/24/18 05/24/18 07:06 11:12 16:29 CBC w Diff WBC RBC Hgb Hct MCV MCH MCHC RDW Plt Count MPV Neut % (Auto) Lymph % (Auto) [place] % (Auto) Eos % (Auto) Baso % (Auto) Neut # (Auto) Lymph # (Auto) [place] # (Auto) Eos # (Auto) Baso # (Auto) WBC Differential Differential Comment Sodium Potassium Chloride Carbon Dioxide Anion Gap BUN Creatinine Estimated GFR POC Glucose 204 H 173 H 192 H Random Glucose Calcium Total Bilirubin AST ALT Alkaline Phosphatase Total Protein Albumin Assessment and Plan - Plan Patient seen and examined. Above note reviewed Follow cultures Continue IV Vancomycin and Zosyn for now
[2018-05-25] MEDS: Morphine Sulfate Inj 2 MG/ML Vial IV.PUSH PRN ×6 (02:31→22:13)
[2018-05-25] MEDS: Piperacil/Tazo 4.5 GM Premix 4.5 GM/100 ML BAG IV.SIG SCH ×3 (06:31→18:36)
[2018-05-25] MEDS: Insulin NovoLOG Aspart Correctional Sugar Inj SQ SCH ×4 (07:50→20:59)
[2018-05-25] MEDS: ARIPiprazole 5 MG Tablet PO SCH (08:33)
[2018-05-25] MEDS: Lisinopril 10 MG Tablet PO SCH (08:33)
[2018-05-25] MEDS: Escitalopram 10 MG Tablet PO SCH (08:33)
[2018-05-25] MEDS: Senna/Docusate Sodium 8.6/50 MG Tablet PO SCH ×2 (08:35→20:43)
--- NOTE | 2018-05-25 15:15 | P.CONFP ---
History of Present Illness Service: primary care Consult date: 05/25/18 Primary Care Provider: Patel Maldonado DO Chief Complaint: Painful and swollen left thumb History of Present Illness: pt had been doing iv dilaudid injections Review of Systems Musculoskeletal: Reports radiating pain into limb Comments: swelling redness left thumb hand wrist PMFSH - History History Provided By: Patient - Medical History Medical History: Medical History (Last Reviewed 05/22/18 @ 19:19 by Leni Lewis) Diabetes mellitus High cholesterol Hypertension - Surgical History Surgical History: Surgical History (Last Reviewed 05/22/18 @ 19:19 by Leni Lewis) History of surgery of head - Family History Family History: Family History (Last Updated 05/23/18 @ 11:43 by Kashmir Le MD) Other Adopted - Tobacco History Second Hand Smoke Exposure: No Tobacco Use In Past 30 Days: No Smoking Status: Never smoker - Alcohol History How Often Do You Have a Drink Containing Alcohol: Never - Substance Use History Substance History: Active Abuse - Substance Use Type Crack/Cocaine Status: Active Route Used: Intravenously Reason for Use: Feels Good Comment: unable to obtain details Other Type: Dilaudid Status: Active Route Used: Intravenously Reason for Use: Feels Good Comment: unable to obtain details - Travel History Recent Travel in the [place] Within the Last 8 Weeks: No Recent Travel Out of the Country Within the Last 8 Weeks: No - Immunization History Tetanus Immunization: <5 Years Tetanus Immunization Year if Known: 2017 Hx Influenza Vaccine This Season: No Medications and Allergies Active Medications: Active Medications Acetaminophen (Tylenol) 650 mg PO Q4H PRN PRN Reason: Temp > 100.4 Al Hydroxide/Mg Hydroxide (Milk Of Magnesia Liq) 30 ml PO Q12H PRN PRN Reason: Mild Constipation Aripiprazole (Abilify) 5 mg PO DAILY [facility] Last Admin: 05/25/18 08:33 Dose: 5 mg Bisacodyl (Dulcolax Supp) 10 mg RECTAL DAILY PRN PRN Reason: SEVERE CONSITIPATION Dextrose (D50w Vial) 50 ml IV.PUSH UNSCH PRN PRN Reason: PER HYPOGLYCEMIA PROTOCOL Escitalopram Oxalate (Lexapro) 10 mg PO DAILY [facility] Last Admin: 05/25/18 08:33 Dose: 10 mg Glucagon (Glucagon Inj) 1 mg OTHER PRN PRN PRN Reason: for Hypoglycemia Protocol Sodium Chloride (Ns Inj) 1,000 mls @ 0 mls/hr IV.SIG BOLUS [facility] Last Infusion: 05/22/18 20:59 Dose: 0 mls/hr Piperacillin/Tazobactam/Dextrose (Zosyn 4.5 Gm Premix) 4.5 gm in 100 mls @ 200 mls/hr IV.SIG Q6H [facility] Last Infusion: 05/25/18 12:05 Dose: Infused Vancomycin HCl 1,250 mg/ (Sodium Chloride) 262.5 mls @ 262.5 mls/hr IV.SIG Q24H [facility] Last Infusion: 05/24/18 17:13 Dose: Infused Insulin Aspart (Novolog Insulin Correctional Sugar Inj) 0 unit SQ ACHS [facility]; Protocol Last Admin: 05/25/18 11:35 Dose: 4 unit Lactulose (Lactulose Liq) 30 ml PO DAILY PRN PRN Reason: SEVERE CONSITIPATION Lisinopril (Prinivil) 10 mg PO DAILY [facility] Last Admin: 05/25/18 08:33 Dose: 10 mg Miscellaneous Information ([facility] Ordered Lab Info) 0 each OTHER ONCE ONE Stop: 05/25/18 15:46 Morphine Sulfate (Morphine Inj) 2 mg IV.PUSH Q4H PRN PRN Reason: PAIN 6-10 Last Admin: 05/25/18 14:22 Dose: 2 mg Ondansetron HCl (Zofran Inj) 4 mg IV.PUSH Q6H PRN PRN Reason: NAUSEA OR VOMITING Pharmacy Profile Note (Vancomycin Consult Pharmacy) 1 each OTHER UNSCH PRN PRN Reason: Pharmacy to dose Senna/Docusate Sodium (Nicky-Colace) 1 tab PO BID [facility] Last Admin: 05/25/18 08:35 Dose: Not Given Sennosides (Senokot) 17.2 mg PO Q12H PRN PRN Reason: Moderate Constipation Zolpidem Tartrate (Ambien) 10 mg PO HS PRN PRN Reason: INSOMNIA Last Admin: 05/24/18 22:16 Dose: 10 mg Allergies Allergy/AdvReac Type Severity Reaction Status Date / Time No Known Allergies Allergy Verified 05/22/18 18:02 Home Medications Medication Instructions Recorded Confirmed Type atorvastatin [Lipitor] 20 mg PO DAILY 05/22/18 05/22/18 History metformin 500 mg PO BID 05/22/18 05/22/18 History aripiprazole 5 mg PO DAILY 05/23/18 05/23/18 History escitalopram oxalate [Lexapro] 10 mg PO DAILY 05/23/18 05/23/18 History zolpidem [Ambien] 10 mg HS PRN 05/23/18 05/23/18 History Exam Vital signs: Vital Signs 05/24/18 16:00 05/24/18 17:42 05/24/18 18:36 Temperature 97.5 F L Pulse Rate 74 Respiratory Rate 21 18 18 Blood Pressure 137/78 Pulse Oximetry 98 05/24/18 20:00 05/25/18 00:00 05/25/18 08:00 Temperature 96.8 F L 98.4 F Pulse Rate 66 64 Respiratory Rate 18 18 20 Blood Pressure 156/88 H 135/69 Pulse Oximetry 99 97 05/25/18 10:22 05/25/18 12:00 Temperature 96.5 F L Pulse Rate 54 L Respiratory Rate 18 20 Blood Pressure 157/82 H Pulse Oximetry 95 Intake & Output 05/24/18 05/25/18 05/25/18 18:59 06:59 18:59 Intake Total 942.5 / 942.5 400 / 400 200 / 200 Output Total 1200 / 1200 1500 / 1500 Balance -257.5 / -257.5 -1100 / -1100 200 / 200 Weight 48.5 kg Intake: IV 462.5 / 462.5 100 / 100 200 / 200 Zosyn 4.5 GM Premix 4.5 gm In 200 / 200 100 / 100 200 / 200 100 ml @ 200 mls/hr IV.SIG Q6H [facility] Rx#:[id number] Vancomycin Inj 1,250 MG In NS 262.5 / 262.5 Inj 250 ML @ 262.5 mls/hr IV. SIG Q24H [facility] Rx#:[id number] Oral 480 / 480 300 / 300 Output: Urine 1200 / 1200 1500 / 1500 Other: Date of Last Bowel Movement 05/23/18 05/24/18 05/24/18 - Constitutional no acute distress - Routine HEENT Exam Head: Present: normocephalic Eye: Present: EOMI, PERRL ENT: Present: mucous membranes moist - Routine Neck Exam Present: supple, full ROM - Routine Chest/Breast/Axilla Exam Chest wall: Present: tenderness - Routine Respiratory Exam Present: CTA bilaterally - Routine Cardiovascular Exam Present: RRR - Routine Abdominal Exam Present: soft - Routine Extremities Exam Comments: left thumb hand swollen reddend - Routine Neurological Exam Present: oriented X3 Results - Labs Result diagrams: 05/24/18 05:35 05/24/18 05:35 Abnormal lab results 05/24/18 05/24/18 05/24/18 Range/Units 05:35 16:29 20:31 POC Glucose 192 H 202 H (68-110) mg/dl Hemoglobin A1c 10.0 H (4.3-6.0) % 05/25/18 05/25/18 Range/Units 07:38 11:14 POC Glucose 195 H 209 H (68-110) mg/dl Hemoglobin A1c (4.3-6.0) % Assessment and Plan - Assessment (1) Abscess of hand, left Code(s): L02.512 - Cutaneous abscess of left hand Status: Acute (2) IVDU (intravenous drug user) Code(s): F19.90 - Other psychoactive substance use, unspecified, uncomplicated Status: Acute - Assessment and Plan continue iv antibiotics ID consulted will switch to [po meds when clear by ID
[2018-05-25] MEDS ORDERED: Pharmacy Ordered Lab Info OTHER ONE (15:45)
[2018-05-25] MEDS: Vancomycin Inj 1,250 MG in Sodium Chlor 0.9% Inj 250 ML IV.SIG SCH (16:35)
[2018-05-25] MEDS: ceFAZolin 2 GM Premix Inj 2 GM/50 ML PIGGYBACK IV.SIG SCH (22:14)
[2018-05-25] MEDS ORDERED: ceFAZolin Inj 2,000 MG in Sodium Chlor 0.9% Inj 80 ML IV.SIG SCH (23:00)
[2018-05-26] MEDS: Morphine Sulfate Inj 2 MG/ML Vial IV.PUSH PRN ×6 (02:20→22:49)
[2018-05-26] MEDS: ceFAZolin 2 GM Premix Inj 2 GM/50 ML PIGGYBACK IV.SIG SCH ×3 (06:07→22:50)
--- NOTE | 2018-05-26 08:43 | P.PNFP ---
Subjective Interval history: Slept poorly, complains of back discomfort Dressing to left hand C/D/I Hopes pt go home on po antibiotics Results - Labs Result diagrams: 05/24/18 05:35 05/24/18 05:35 Abnormal lab results 05/25/18 05/25/18 05/25/18 Range/Units 11:14 16:33 16:40 POC Glucose 209 H 227 H (68-110) mg/dl Vancomycin Trough 1.7 L (5.0-10.0) mcg/mL 05/25/18 05/26/18 Range/Units 20:49 07:40 POC Glucose 247 H 196 H (68-110) mg/dl Vancomycin Trough (5.0-10.0) mcg/mL Microbiology 05/22/18 19:05 Aerobic Blood Culture - Preliminary Blood - Peripheral No growth in 3 days Anaerobic Blood Culture - Preliminary No growth in 3 days 05/22/18 19:00 Aerobic Blood Culture - Preliminary Blood - Peripheral No growth in 3 days Anaerobic Blood Culture - Preliminary No growth in 3 days 05/22/18 21:58 Gram Stain - Final Abscess - Hand Wound Culture - Final Staphylococcus aureus Physical Exam Vital signs: Vital Signs 05/25/18 10:22 05/25/18 12:00 05/25/18 14:24 Temperature 96.5 F L Pulse Rate 54 L Respiratory Rate 18 20 18 Blood Pressure 157/82 H Pulse Oximetry 95 05/25/18 16:00 05/25/18 18:05 05/25/18 20:00 Temperature 97.9 F 97.7 F Pulse Rate 60 58 L Respiratory Rate 20 17 20 Blood Pressure 139/77 151/84 H Pulse Oximetry 98 97 05/26/18 00:00 05/26/18 07:06 Temperature 98.2 F Pulse Rate 59 L Respiratory Rate 20 7 L Blood Pressure 133/83 Pulse Oximetry 98 Intake & Output 05/25/18 05/26/18 05/26/18 18:59 06:59 18:59 Intake Total 743.5 / 743.5 470 / 470 Balance 743.5 / 743.5 470 / 470 Weight 102 kg Intake: IV 462.5 / 462.5 200 / 200 Zosyn 4.5 GM Premix 4.5 gm In 200 / 200 100 / 100 100 ml @ 200 mls/hr IV.SIG Q6H [facility] Rx#:[id number] Vancomycin Inj 1,250 MG In NS 262.5 / 262.5 Inj 250 ML @ 262.5 mls/hr IV. SIG Q24H [facility] Rx#:[id number] Ancef 2 GM Premix Inj 2 gm In 100 / 100 50 ml @ 100 mls/hr IV.SIG Q8H [facility] Rx#:[id number] Oral 281 / 281 270 / 270 Other: # Voids 4 2 Date of Last Bowel Movement 05/24/18 - Constitutional no acute distress - Routine HEENT Exam Head: Present: normocephalic Eye: Present: PERRL ENT: Present: mucous membranes moist - Routine Neck Exam Present: supple - Routine Respiratory Exam Present: CTA bilaterally - Routine Cardiovascular Exam Present: S1, S2 - Routine Abdominal Exam Present: soft, normoactive bowel sounds - Routine Skin Exam Present: dry (Dressing to Left hand ), warm Assessment and Plan - Assessment (1) Abscess of hand, left Code(s): L02.512 - Cutaneous abscess of left hand Status: Acute (2) IVDU (intravenous drug user) Code(s): F19.90 - Other psychoactive substance use, unspecified, uncomplicated Status: Acute Plan: ID following, cultures pending IV Vanco, Zosyn - Assessment and Plan continue iv antibiotics ID consulted will switch to [po meds when clear by ID 05/26/18- Afebrile, dressing to hand C/D/I. Pain controlled, ID following on Iv Vanco, Zosyn. Dc when cleared by ID on PO medications.
[2018-05-26] MEDS: Escitalopram 10 MG Tablet PO SCH (09:42)
[2018-05-26] MEDS: ARIPiprazole 5 MG Tablet PO SCH (09:42)
[2018-05-26] MEDS: Senna/Docusate Sodium 8.6/50 MG Tablet PO SCH ×3 (09:42→22:50)
[2018-05-26] MEDS: Lisinopril 10 MG Tablet PO SCH (09:42)
[2018-05-26] MEDS: Insulin NovoLOG Aspart Correctional Sugar Inj SQ SCH ×4 (09:44→21:00)
--- NOTE | 2018-05-26 18:58 | P.PN ---
Subjective Interval history: complains of mild pain no fever no numbness Physical Exam Vital signs: Vital Signs 05/25/18 20:00 05/26/18 00:00 05/26/18 07:06 Temperature 97.7 F 98.2 F Pulse Rate 58 L 59 L Respiratory Rate 20 20 7 L Blood Pressure 151/84 H 133/83 Pulse Oximetry 97 98 05/26/18 08:00 05/26/18 12:00 05/26/18 16:00 Temperature 97.6 F 98.0 F 97.7 F Pulse Rate 58 L 56 L 55 L Respiratory Rate 17 17 16 Blood Pressure 152/93 H 156/92 H 171/93 H Pulse Oximetry 97 97 98 Intake & Output 05/25/18 05/26/18 05/26/18 18:59 06:59 18:59 Intake Total 743.5 / 743.5 470 / 470 50 / 50 Balance 743.5 / 743.5 470 / 470 50 / 50 Weight 102 kg Intake: IV 462.5 / 462.5 200 / 200 50 / 50 Zosyn 4.5 GM Premix 4.5 gm In 200 / 200 100 / 100 100 ml @ 200 mls/hr IV.SIG Q6H [facility] Rx#:[id number] Vancomycin Inj 1,250 MG In NS 262.5 / 262.5 Inj 250 ML @ 262.5 mls/hr IV. SIG Q24H [facility] Rx#:[id number] Ancef 2 GM Premix Inj 2 gm In 100 / 100 50 / 50 50 ml @ 100 mls/hr IV.SIG Q8H [facility] Rx#:[id number] Oral 281 / 281 270 / 270 Other: # Voids 4 2 Date of Last Bowel Movement 05/24/18 Narrative: left hand: intact dressing minimal drainage minimal necrotic tissue decreased swelling and redness able to move his thumb better intact distal sensation and circulation; cultures: Staph sensitive to oxacillin Results - Labs CBC & Chem 7: 05/24/18 05:35 05/24/18 05:35 Laboratory Results - last 24 hr 05/25/18 05/25/18 05/26/18 16:33 20:49 07:40 POC Glucose 247 H 196 H Vancomycin Trough 1.7 L 05/26/18 05/26/18 11:39 16:46 POC Glucose 188 H 214 H Vancomycin Trough Microbiology 05/22/18 19:05 Blood - Peripheral Aerobic Blood Culture - Preliminary No growth in 4 days 05/22/18 19:05 Blood - Peripheral Anaerobic Blood Culture - Preliminary No growth in 4 days 05/22/18 19:00 Blood - Peripheral Aerobic Blood Culture - Preliminary No growth in 4 days 05/22/18 19:00 Blood - Peripheral Anaerobic Blood Culture - Preliminary No growth in 4 days Assessment and Plan - Assessment (1) Abscess of hand, left Code(s): L02.512 - Cutaneous abscess of left hand Status: Acute - Plan 48 year old male s/p I and D left hand/thenar abscess Plan: surrounding skin is cleaned with alcohol wipes wound cleaned with hydrogen peroxide adaptic and dry dressing applied cleared for discharge from hand surgery daily dressing changes: clean the wound with hydrogen peroxide and saline, adaptic, 4X4 and cling po antibiotics based on ID recommendations follow up in office next week.
[2018-05-27] MEDS: Morphine Sulfate Inj 2 MG/ML Vial IV.PUSH PRN ×5 (03:06→20:42)
[2018-05-27] MEDS: ceFAZolin 2 GM Premix Inj 2 GM/50 ML PIGGYBACK IV.SIG SCH (06:18)
[2018-05-27] MEDS: Insulin NovoLOG Aspart Correctional Sugar Inj SQ SCH ×3 (08:11→16:46)
[2018-05-27] MEDS: Lisinopril 10 MG Tablet PO SCH (09:36)
[2018-05-27] MEDS: Escitalopram 10 MG Tablet PO SCH (09:36)
[2018-05-27] MEDS: Senna/Docusate Sodium 8.6/50 MG Tablet PO SCH ×2 (09:37→20:02)
[2018-05-27] MEDS: ARIPiprazole 5 MG Tablet PO SCH (09:37)
--- NOTE | 2018-05-27 09:54 | P.PNFP ---
Subjective Interval history: Complains of pain and burning to LUE Back discomfort r/t bed Denies Cp, SOB Results - Labs Result diagrams: 05/24/18 05:35 05/24/18 05:35 Abnormal lab results 05/26/18 05/26/18 05/26/18 Range/Units 11:39 16:46 20:48 POC Glucose 188 H 214 H 172 H (68-110) mg/dl 05/27/18 Range/Units 07:56 POC Glucose 186 H (68-110) mg/dl Physical Exam Vital signs: Vital Signs 05/26/18 12:00 05/26/18 16:00 05/26/18 20:00 Temperature 98.0 F 97.7 F Pulse Rate 56 L 55 L 60 Respiratory Rate 17 16 20 Blood Pressure 156/92 H 171/93 H 152/89 H Pulse Oximetry 97 98 97 05/27/18 00:00 05/27/18 04:00 Temperature 98.4 F 97.2 F L Pulse Rate 53 L 52 L Respiratory Rate 20 20 Blood Pressure 155/94 H 132/72 Pulse Oximetry 98 96 Intake & Output 05/26/18 05/27/18 05/27/18 18:59 06:59 18:59 Intake Total 50 / 50 580 / 580 Balance 50 / 50 580 / 580 Weight 98.6 kg Intake: IV 50 / 50 100 / 100 Ancef 2 GM Premix Inj 2 gm In 50 / 50 100 / 100 50 ml @ 100 mls/hr IV.SIG Q8H [facility] Rx#:[id number] Oral 480 / 480 Other: # Voids 2 - Constitutional no acute distress - Routine HEENT Exam Eye: Present: PERRL ENT: Present: mucous membranes moist - Routine Neck Exam Present: supple - Routine Respiratory Exam Present: CTA bilaterally - Routine Cardiovascular Exam Present: S1, S2 - Routine Abdominal Exam Present: soft, normoactive bowel sounds - Routine Extremities Exam Present: edema Comments: LUE/ hand - Routine Skin Exam Present: dry, warm Comments: LUE C/D/I - Routine Neurological Exam Present: alert, oriented X3 - Routine Psychiatric Exam Present: cooperative Assessment and Plan - Assessment (1) Abscess of hand, left Code(s): L02.512 - Cutaneous abscess of left hand Status: Acute (2) IVDU (intravenous drug user) Code(s): F19.90 - Other psychoactive substance use, unspecified, uncomplicated Status: Acute Plan: ID following, cultures pending IV Vanco, Zosyn - Assessment and Plan continue iv antibiotics ID consulted will switch to [po meds when clear by ID 05/26/18- Afebrile, dressing to hand C/D/I. Pain controlled, ID following on Iv Vanco, Zosyn. Dc when cleared by ID on PO medications. 05/27/18- Dressing c/d/i/to LUE, Being followed by ID. Dc once cleared by ID. is RN can asst with daily dressing changes. Pain controlled.
--- NOTE | 2018-05-27 10:14 | P.PNID ---
Subjective Remarks: No fevers Pain controlled Antibiotics: Cefazolin IV Lines: Peripheral IV line Past Medical History: Diabetes h/o IVDU Allergies/Adverse Reactions: Allergies No Known Allergies Allergy (Verified 05/22/18 18:02) Objective Vital Signs 05/26/18 12:00 05/26/18 16:00 05/26/18 20:00 Temperature 98.0 F 97.7 F Pulse Rate 56 L 55 L 60 Respiratory Rate 17 16 20 Blood Pressure 156/92 H 171/93 H 152/89 H Pulse Oximetry 97 98 97 05/27/18 00:00 05/27/18 04:00 Temperature 98.4 F 97.2 F L Pulse Rate 53 L 52 L Respiratory Rate 20 20 Blood Pressure 155/94 H 132/72 Pulse Oximetry 98 96 Intake & Output 05/26/18 05/27/18 05/27/18 18:59 06:59 18:59 Intake Total 50 / 50 580 / 580 Balance 50 / 50 580 / 580 Weight 98.6 kg Intake: IV 50 / 50 100 / 100 Ancef 2 GM Premix Inj 2 gm In 50 / 50 100 / 100 50 ml @ 100 mls/hr IV.SIG Q8H [facility] Rx#:[id number] Oral 480 / 480 Other: # Voids 2 05/22/18 19:05 Blood - Peripheral Aerobic Blood Culture - Preliminary No growth in 4 days 05/22/18 19:05 Blood - Peripheral Anaerobic Blood Culture - Preliminary No growth in 4 days 05/22/18 19:00 Blood - Peripheral Aerobic Blood Culture - Preliminary No growth in 4 days 05/22/18 19:00 Blood - Peripheral Anaerobic Blood Culture - Preliminary No growth in 4 days 05/22/18 21:58 Abscess - Hand Gram Stain - Final 05/22/18 21:58 Abscess - Hand Wound Culture - Final Staphylococcus aureus Lab - Chemistry Results 05/25/18 05/25/18 05/25/18 11:14 16:40 20:49 POC Glucose 209 H 227 H 247 H 05/26/18 05/26/18 05/26/18 07:40 11:39 16:46 POC Glucose 196 H 188 H 214 H 05/26/18 05/27/18 20:48 07:56 POC Glucose 172 H 186 H Imaging: ITS Impressions Hand X-Ray 05/22/18 19:07 CONCLUSION: Generalized soft tissue swelling of the thenar eminence without radiopaque foreign body. Physical Exam: Alert / oriemted x 3 No fevers Chest clear Heart S1 S2 normal Left hand less swollen. Dressing intact/ clean Assessment and Plan (1) Abscess of hand, left Status: Acute Code(s): L02.512 - Cutaneous abscess of left hand - Plan Culture grew MSSA Can stop Cefazolin Start Cephalexin 500 mg po qid x 10-14 days On discharge - patient should follow with Hand Surgeon. Discussed with patient dangers of IVDU and need to stop.
[2018-05-28] MEDS: Morphine Sulfate Inj 2 MG/ML Vial IV.PUSH PRN ×3 (00:14→08:06)
[2018-05-28] MEDS: Insulin NovoLOG Aspart Correctional Sugar Inj SQ SCH ×2 (01:56→08:05)
[2018-05-28] MEDS: ARIPiprazole 5 MG Tablet PO SCH (08:06)
[2018-05-28] MEDS: Lisinopril 10 MG Tablet PO SCH (08:07)
[2018-05-28] MEDS: Escitalopram 10 MG Tablet PO SCH (08:07)
[2018-05-28] MEDS: Senna/Docusate Sodium 8.6/50 MG Tablet PO SCH (08:07)
[2018-05-28 09:33] VITALS: BP 134/65; PULSE 50; RESP 20; TEMP 97.6; O2SAT 95
--- NOTE | 2018-05-28 13:05 | P.PNFP ---
Subjective Interval history: Patient D/Constantin yesterday and kept overnight pending ID approval for D/C. Results - Labs Result diagrams: 05/24/18 05:35 05/24/18 05:35 Abnormal lab results 05/27/18 05/28/18 Range/Units 16:15 06:48 POC Glucose 205 H 166 H (68-110) mg/dl Physical Exam Vital signs: Vital Signs 05/27/18 16:00 05/27/18 20:00 05/27/18 23:47 Temperature 98.0 F 97.8 F 98.8 F Pulse Rate 52 L 56 L 62 Respiratory Rate 16 18 18 Blood Pressure 177/84 H 154/83 H 150/80 H Pulse Oximetry 95 96 98 05/28/18 08:00 05/28/18 10:12 Temperature 97.6 F Pulse Rate 50 L Respiratory Rate 20 20 Blood Pressure 134/65 Pulse Oximetry 95 Intake & Output 05/27/18 05/28/18 05/28/18 18:59 06:59 18:59 Intake Total 1580 / 1580 Output Total 1500 / 1500 Balance 80 / 80 Weight 98 kg Intake: Oral 480 / 480 Anesthesia Amount 1100 / 1100 Output: Urine 1500 / 1500 Other: # Voids 3 Date of Last Bowel Movement 05/24/18 05/24/18 # Bowel Movements 2 - Constitutional no acute distress - Routine HEENT Exam Head: Present: normocephalic Eye: Present: PERRL, normal accommodation ENT: Present: mucous membranes moist - Routine Neck Exam Present: supple, full ROM - Routine Respiratory Exam Present: CTA bilaterally - Routine Cardiovascular Exam Present: RRR, S1, S2 - Routine Abdominal Exam Present: soft, normoactive bowel sounds - Routine Extremities Exam Comments: Intact dressing left hand - Routine Skin Exam Present: intact - Routine Neurological Exam Present: alert, oriented X3 - Detailed Neurological Exam: Coma Scale Eye Opening: Spontaneous Verbal Response: Oriented Motor Response: Obey commands Adin Coma Scale Total: 15 - Routine Psychiatric Exam Present: normal affect Assessment and Plan - Assessment (1) Abscess of hand, left Code(s): L02.512 - Cutaneous abscess of left hand Status: Acute (2) IVDU (intravenous drug user) Code(s): F19.90 - Other psychoactive substance use, unspecified, uncomplicated Status: Acute Plan: ID following and has approved D/C on Keflex PO. - Assessment and Plan continue iv antibiotics ID consulted will switch to [po meds when clear by ID 05/26/18- Afebrile, dressing to hand C/D/I. Pain controlled, ID following on Iv Vanco, Zosyn. Dc when cleared by ID on PO medications. 05/27/18- Dressing c/d/i/to LUE, Being followed by ID. Dc once cleared by ID. is RN can asst with daily dressing changes. Pain controlled. 05/28/18 - patient held overnight pending approval by ID. D/Constantin today on PO Keflex for F/U in our office this week and then for referral to hand clinic. Discussed Condition With: patient Discharge Planning: HOme
== END 2018-05-28 10:35 | disposition home or self-care (01) ==
LOC: PHED 17:49 → OBSVTOIN 20:15 → INTOOBSV 20:15 → PHEDA 20:15 → PH3 05-23 00:38
PROVIDERS: ADMIT Family Medicine; ATTEND Family Medicine